=== PATIENT | male | born 1970 | race Caucasian/White ===

== ENCOUNTER → 2016-07-19 | Outpatient (CLI) | payer OTHER ==
[2016-07-19 17:33] LABS: Bilirubin, Delta 0.3 mg/dL (0.0-0.2); Total Bilirubin 0.5 mg/dL (0.2-1.3); Total Protein 7.1 g/dL (6.3-8.2)
== END ==
LOC: LABWHC1 16:32
DX: R74.8 Abnormal levels of other serum enzymes (principal)
CPT/HCPCS: 36415; 80076

== ENCOUNTER → 2016-07-31 | Outpatient (CLI) | payer OTHER ==
--- NOTE | 2016-08-01 07:55 | P.CONS ---
History of Present Illness - Reason for Consult Consult date: 07/31/16 - History of Present Illness This is from a history for this 46 years old male with a chronic history of severe low back pain, and a 22 lumbar degenerative disc disease and lumbar spondylosis with lumbar facet arthropathy, done diagnostic medial branch block and later on was followed with radiofrequency ablation of the medial branch lumbar area, she'll continue to have severe low back pain, and pain is constant and increases with any activity, the patient was referred to have a consultation with the Dr. Shayy levi spine surgeon, and he recommended lumbar spinal fusion, patient reported that he doesn't want to have surgery at this point, he is trying to delay any surgical interventions and he prefers medication management, he denies any fever or night sweats he denies any change in the bowel movements or urination Past Medical History Past Medical History: Musculoskeletal Disorder, Rheumatoid Arthritis (RA) Additional Past Medical History / Comment(s): DDD in lumbar area. History of Any Multi-Drug Resistant Organisms: None Reported Past Surgical History: No Surgical Hx Reported Additional Past Surgical History / Comment(s): Had all his teeth pulled recently ,pain clinic injections Past Anesthesia/Blood Transfusion Reactions: No Reported Reaction Additional Past Anesthesia/Blood Transfusion Reaction / Comm: Only Novacain for teeth Past Psychological History: No Psychological Hx Reported Smoking Status: Current every day smoker Past Alcohol Use History: Rare Additional Past Alcohol Use History / Comment(s): Smokes 1 PPD x 30 yrs. Past Drug Use History: None Reported - Past Family History Mother Family Medical History: No Reported History Father Family Medical History: Pulmonary Embolus Additional Family Medical History / Comment(s): ? Medications and Allergies Home Medications Medication Instructions Recorded Confirmed Type Cholecalciferol (Vitamin D3) 50,000 units PO DAILY 03/07/16 07/31/16 History [Vitamin D3] Allergies Allergy/AdvReac Type Severity Reaction Status Date / Time No Known Allergies Allergy Verified 07/31/16 16:00 Physical Exam Vitals: Intake and Output 07/31/16 08/01/16 08/01/16 22:59 06:59 14:59 Other: Weight 107.048 kg Physical Examinations : 1-Constitutiona : Cooperative , not in acute distress . 2-HEENT : nech ; supple , no Lymphadenopathy , no Thyromegaly , normal thyroid size . eyes : no ptosis , no icterus, no photophobia . ENT : normal of hearing , normal oropharynx , no Thrush . 3- Respiratory : Chest clear to auscultations Bilaterally , no wheezing , no Rhonchi . 4- Cardiovascular : regular rate and rhythem , S1 , S2 , no S3 , no S4. 5- Gastrointestinal : abdomen soft no tenderness , bowel sounds positive all four quadrents , no organomegally . 6- Genitourinary : Defferred . 7- neurologic : Cranial nerve II to XII intact , no focal neurological deffecit . 8-psychatric : alert , oriented X 3 , appropriate affect , intact judgment and insight . 9-Lymphatic : no Lymphadenopathy . 10- musculoskeltal : positive cervical facet loading test . exams of the Lumber spine = normal moter stegnth lower extremities ,thigh and legs .5/5 deep tendon reflexes : normal Knee Jerk , normal ankle Jerk . positive lumber facet Loading Test strait leg raising test positive at 30 degree , RT ,LT , Fabere test positive RT and positive LT . Assessment and Plan Plan: Assessment and plan = - Chronic low back pain secondary to lumbar degenerative disc disease , lumbar spondylosis with facet arthropathy without myelopathy , Patient hasn't the diagnostic medial branch block which was followed with radiofrequency ablation of the medial branch lumbar area, he continued to have severe low back pain, he was evaluated by spine surgeon Dr. Lucas on a recommended lumbar fusion patient doesn't want surgery, patient will be given prescription refill for naproxen 500 mg twice a day when necessary for pain, and I will increase the Neurontin to 400 mg 3 times a day, patient could benefit from ultrasound 50 mg every 8 hours when necessary for pain, patient signed the agreement, and next visit we'll do urine drug screen and follow up with the pain clinic in 2 months Time with Patient: Less than 30
== END | disposition home or self-care (01) ==
LOC: PNWHC3 15:59
PROVIDERS: ATTEND Specialist
DX: M51.36 Other intervertebral disc degeneration, lumbar region (principal); M47.816 Spondylosis without myelopathy or radiculopathy, lumbar region; M46.86 Other specified inflammatory spondylopathies, lumbar region; F17.200 Nicotine dependence, unspecified, uncomplicated
CPT/HCPCS: 99211

== ENCOUNTER → 2016-09-26 | Outpatient (CLI) | payer OTHER ==
[2016-09-26 12:19] VITALS: BP 145/94; PULSE 96; RESP 16; TEMP 98.5
--- NOTE | 2016-09-26 13:31 | P.PN ---
Subjective This is follow-up visit for this patient with a history of severe and chronic low back pain secondary to lumbar degenerative disc disease, lumbar facet arthropathy, we did interventional pain management injection,, radiofrequency ablation medial branch lumbar area he get good pain relief, and he saw Dr. Lucas orthopedic spine surgeon who recommended lumbar fusion surgery, patient doesn't want to have any surgery, he preferred to continue medication management and interventional pain management, she is having some mid back pain patient currently on 1- Ultram 50 MG EVERY 8 HOURS 2-naproxen 500 twice a day 3-Neurontin 400 every 8 hours Patient denies any side effects of the medication, denies excessive drowsiness or sleepiness, denies suicidal ideation, and reports that the current pain medication is helping To control the pain and improve activity of daily living . Patient denies any motor or sensory deficit, denies change in bowel movement or urination, patient denies any fever or night sweats and patient here for follow-up visit and medication refill Objective - Vital Signs Vital signs: Vital Signs Temp 98.5 F 09/26/16 12:14 Pulse 96 09/26/16 12:14 Resp 16 09/26/16 12:14 BP 145/94 09/26/16 12:14 Pulse Ox 93 L 09/26/16 12:14 Intake & Output 09/25/16 09/26/16 09/26/16 18:59 06:59 18:59 Weight 104.326 kg - Exam Physical Examinations : 1-Constitutiona : Cooperative , not in acute distress . 2-HEENT : nech ; supple , no Lymphadenopathy , normal thyroid size . eyes : no ptosis , no icterus, no photophobia . ENT : normal of hearing , normal oropharynx , no Thrush . 3- Respiratory : Chest clear to auscultations Bilaterally , no wheezing , no Rhonchi . 4- Cardiovascular : regular rate and rhythem , S1 , S2 , no S3 , no S4. 5- Gastrointestinal : abdomen soft no tenderness , bowel sounds positive all four quadrents , no organomegally . 6- Genitourinary : Defferred . 7- neurologic : Cranial nerve II to XII intact , no focal neurological deffecit . 8-psychatric : alert , oriented X 3 , appropriate affect , intact judgment and insight . 9-Lymphatic : no Lymphadenopathy . 10- musculoskeltal : , Lumber spine = normal moter stegnth lower extremities ,thigh and legs .5/5 deep tendon reflexes : normal Knee Jerk , normal ankle Jerk . positive lumber facet Loading Test strait leg raising test positive at 30 degree , RT ,LT , Fabere test positive RT and positive LT . tenderness over the Sacroiliac joint on the Right , and Left side Thoracic spine= multiple trigger point identified in the mid thoracic area, positive facet loading to thoracic area from T7 to T10 Assessment and Plan Plan: Assessment and plan = - Chronic low back pain secondary to lumbar degenerative disc disease , lumbar spondylosis with facet arthropathy without myelopathy , -The myofascial pain versus thoracic facet -Patient denies any side effect of the medication, and the current medication helped the patient to control the pain and improve activity of daily living The patient was counseled about risk of opioid use, psychological risk associated with opioids discussed with the patient, body mass index and exercise. Patient signed the narcotic agreement , and was orally counseled not to overuse , abuse , divert, or sell medications ,and take them as prescribed only , and the patient was counseled against driving and while you are using the narcotic medication also not to use alcohol or any illicit drugs and the patient verbalized understanding that lack of compliance and could result in failure to renew narcotics prescriptions and possible discharge from the clinic - diagnoses, prognosis, and treatment options including but not limited to physical therapy, surgical interventions, interventional therapies and medication management including narcotics and adjuvant medication were discussed with the patient and all questions answered to the patient's satisfaction. -medication refile =1-Ultram 50 mg every 8 hours dispense 90 with 2 refills 2-naproxen 500 mg twice a day dispense 60 with 1 refill 3- Neurontin 400 mg 3 times a day , dispense 90 with 2 refills follow up in 3 months -procedure= consider repeat radiofrequency ablation medial branch lumbar area next visit , urine drug screen ordered today Time with Patient: Less than 30
== END ==
LOC: PNWHC3 11:46
PROVIDERS: ATTEND Specialist
DX: M51.36 Other intervertebral disc degeneration, lumbar region (principal); M47.816 Spondylosis without myelopathy or radiculopathy, lumbar region; M46.86 Other specified inflammatory spondylopathies, lumbar region; G89.29 Other chronic pain; Z79.891 Long term (current) use of opiate analgesic
CPT/HCPCS: 80307; G0480 ×2; G0463; 80356; 80373; 99211

== ENCOUNTER 2016-10-18 20:46 | Emergency (ER) | payer OTHER ==
--- NOTE | 2016-10-18 22:41 | ED ---
Upper Extremity HPI - General Chief Complaint: Extremity Injury, Upper Stated Complaint: L Arm Pain/Injury Time Seen by Provider: 10/18/16 21:54 Source: patient Mode of arrival: ambulatory Limitations: no limitations - History of Present Illness Initial Comments: Patient is a right-handed 46-year-old male medical history significant for rheumatoid arthritis and chronic low back pain presenting to the emergency department with complaints of left upper extremity pain. Patient states he was walking in his sandals yesterday and missed a curve and fell with his left hand outstretched. Patient currently complains of left upper extremity pain mostly on the ventral aspect of his left elbow and upper arm. Patient rates pain 9 out of 10, described as sharp, exacerbated with movement, relieved with rest. Patient states he took prescribed narcotics prior to arrival and applied ice to his left upper extremity. MD Complaint: Injury to:: left, arm, elbow Onset/Timin -: days(s) Other Injuries: none Handedness: right Place: outdoors Severity scale (1-10): 9 Improves With: immobilization Worsens With: movement of extremity Context: fall Associated Symptoms: heard/felt popping sensat Treatments Prior to Arrival: cold therapy - Related Data Home Medications Medication Instructions Recorded Confirmed Cholecalciferol (Vitamin D3) 50,000 units PO DAILY 03/07/16 09/26/16 [Vitamin D3] Previous Rx's Medication Instructions Recorded Naproxen 500 mg PO BID #60 tablet 07/31/16 Gabapentin [Neurontin] 400 mg PO TID #90 cap 09/26/16 Naproxen [EC-Naprosyn] 500 mg PO Q12HR PRN #60 tablet. 09/26/16 traMADol HCL [Ultram] 50 mg PO Q6HR PRN #90 tab 09/26/16 Allergies Allergy/AdvReac Type Severity Reaction Status Date / Time No Known Allergies Allergy Verified 10/18/16 20:50 Review of Systems ROS Statement: Those systems with pertinent positive or pertinent negative responses have been documented in the HPI. ROS Other: All systems not noted in ROS Statement are negative. Past Medical History Past Medical History: Musculoskeletal Disorder, Rheumatoid Arthritis (RA) Additional Past Medical History / Comment(s): DDD in lumbar area. History of Any Multi-Drug Resistant Organisms: None Reported Past Surgical History: No Surgical Hx Reported Additional Past Surgical History / Comment(s): Had all his teeth pulled recently ,pain clinic injections Past Anesthesia/Blood Transfusion Reactions: No Reported Reaction Additional Past Anesthesia/Blood Transfusion Reaction / Comment(s): Only Novacain for teeth Past Psychological History: No Psychological Hx Reported Smoking Status: Current every day smoker - Past Family History Mother Family Medical History: No Reported History Father Family Medical History: Pulmonary Embolus Additional Family Medical History / Comment(s): ? General Exam Limitations: no limitations General appearance: alert, in no apparent distress Head exam: Present: atraumatic, normocephalic, normal inspection Eye exam: Present: normal appearance ENT exam: Present: normal exam, mucous membranes moist, normal external ear exam Neck exam: Present: normal inspection, full ROM. Absent: tenderness Respiratory exam: Present: normal lung sounds bilaterally. Absent: respiratory distress, wheezes, rales, rhonchi, stridor Cardiovascular Exam: Present: regular rate, normal rhythm, tachycardia, normal heart sounds. Absent: systolic murmur GI/Abdominal exam: Present: soft, normal bowel sounds. Absent: tenderness Left Shoulder Exam: Present: normal inspection, full ROM. Absent: tenderness, swelling Upper Arm exam: Present: tenderness, swelling, ecchymosis, deformity Elbow exam: Present: full ROM, tenderness, swelling, ecchymosis Forearm Wrist exam: Present: full ROM Hand Wrist exam: Present: normal inspection, full ROM. Absent: tenderness, swelling Neuro motor exam: Present: wrist extension intact, thumb opposition intact, thumb IP flexion intact, thumb adduction intact, fingers 2-5 abduction intact Neurosensory exam: Present: radial nerve intact, ulnar nerve intact, median nerve intact Vascular: Present: normal capillary refill, radial pulse, brachial pulse, ulnar pulse. Absent: vascular compromise Neurological exam: Present: alert, oriented X3, normal gait, other (No focal deficits noted) Psychiatric exam: Present: normal affect, normal mood Skin exam: Present: warm, dry, intact Course Vital Signs 10/18/16 10/18/16 20:47 23:30 Temperature 98.4 F 97.2 F L Pulse Rate 102 H 88 Respiratory 20 16 Rate Blood Pressure 132/81 129/84 O2 Sat by Pulse 95 95 Oximetry Medical Decision Making - Medical Decision Making Sprain to left elbow. Patient instructed to continue ice, Motrin, and elevation. Patient instructed to follow-up with orthopedic service with persistent pain. Patient agrees with treatment plan. Discharge instructions and return parameters reviewed. - Radiology Data Radiology results: report reviewed X-ray left humerus: No acute fracture. No dislocation. Soft tissue swelling distal anterior upper arm. X-ray left forearm: Soft tissue swelling medial to left elbow. No acute shift abnormality. X-ray left elbow. Soft tissue swelling medial to the left elbow. No acute osseous abnormality. Disposition Clinical Impression: Sprain of left elbow Disposition: HOME SELF-CARE Condition: Good Instructions: Elbow Sprain (ED) Additional Instructions: Avoid activity that causes pain Ice 20 minutes 4 times a day usually for 2-3 days Keep elevated as much as possible 24-48 hours. Continue Motrin for pain. Return to the emergency department with symptoms of increased swelling, pain, numbness, tingling, or hand feeling cold to touch. Follow-up with primary service and orthopedic service as directed. Referrals: Shila Kessler MD [Primary Care Provider] - 1-2 days Latonya Lucas DO [Doctor of Osteopathic Medicine] - 1-2 days Time of Disposition: 23:35
--- NOTE | 2016-10-18 23:21 | XR ---
EXAM: XR Left Forearm, 2 Views CLINICAL HISTORY: Reason: Pain TECHNIQUE: Frontal and lateral views of the left forearm. COMPARISON: No relevant prior studies available. FINDINGS: Bones/joints: Unremarkable. No acute fracture. No dislocation. Soft tissues: Soft tissue swelling medial to the left elbow. IMPRESSION: Soft tissue swelling medial to the left elbow. No acute osseous abnormality.
--- NOTE | 2016-10-18 23:21 | XR ---
EXAM: XR Left Humerus, 2 or More Views CLINICAL HISTORY: Reason: Pain TECHNIQUE: Frontal and lateral views of the left humerus. COMPARISON: No relevant prior studies available. FINDINGS: Bones/joints: No acute fracture. No dislocation. Soft tissues: Soft tissue swelling distal anterior upper arm. IMPRESSION: Soft tissue swelling of the distal anterior upper arm. No acute fracture.
--- NOTE | 2016-10-18 23:22 | XR ---
EXAM: XR Left Elbow Complete, 3 or More Views CLINICAL HISTORY: Reason: Pain TECHNIQUE: Frontal, lateral and oblique views of the left elbow. COMPARISON: No relevant prior studies available. FINDINGS: Bones/joints: No acute fracture. No dislocation. No joint effusion. Soft tissues: Soft tissue swelling medial to the left elbow. IMPRESSION: Soft tissue swelling medial to the left elbow. No acute osseous abnormality.
[2016-10-18 23:32] VITALS: BP 129/84; PULSE 88; RESP 16; TEMP 97.2
== END 2016-10-18 23:40 | disposition home or self-care (01) ==
LOC: EC 20:46
DX: S53.402A Unspecified sprain of left elbow, initial encounter (principal); F17.200 Nicotine dependence, unspecified, uncomplicated; Z79.899 Other long term (current) drug therapy; W10.1XXA Fall (on)(from) sidewalk curb, initial encounter; Y93.01 Activity, walking, marching and hiking
CPT/HCPCS: 99283

== ENCOUNTER → 2016-12-19 | Outpatient (CLI) | payer OTHER ==
[2016-12-19 12:07] VITALS: BP 121/80; PULSE 91; RESP 16; TEMP 97.8
--- NOTE | 2016-12-19 12:29 | P.PN ---
Progress Note - Text This is a 46-year-old male with axial lower back pain due to degenerative disc disease and pars defect bilaterally. He shouldn't hand lumbar medial branch RFA about 8 months ago which gave him 1-2 months of pain relief only however he got significant pain relief for the first 1 or 2 months after that. Patient works as a cook takes tramadol and the Neurontin for his pain his primary care physician asked him to stop using naproxen avoid any stomach complications. At this time I will schedule the patient to have lumbar medial branch RFA on the right side to start with, and then we'll continue prescribing tramadol and Neurontin for him.
== END | disposition home or self-care (01) ==
LOC: PNWHC3 11:50
PROVIDERS: ATTEND Anesthesiology
DX: M51.16 Intervertebral disc disorders with radiculopathy, lumbar region (principal); Z79.899 Other long term (current) drug therapy
CPT/HCPCS: 99211

== ENCOUNTER 2017-01-10 06:23 | Day surgery (SDC) | payer OTHER ==
[2017-01-08 11:48] VITALS: BMI 32.3
[~2017-01-10 06:23] MED LIST: LACTATED RINGERS 1,000 ML IV SCH
[2017-01-10 06:55] VITALS: TEMP 98.1
[2017-01-10] MEDS ORDERED: LIDOCAINE 1% 20 ML VIAL (10MG/ML) FOR IV START INTRADERMA ONE (06:55)
[2017-01-10] MEDS ORDERED: IV FLUID CONTINUATION 1,000 ML IV ONE (08:12)
--- NOTE | 2017-01-10 08:14 | P.PCN ---
Date of Procedure: 01/10/17 Preoperative Diagnosis: Lumbar spondylosis without myelopathy Postoperative Diagnosis: Same as above Procedure(s) Performed: Right lumbar medial branch radiofrequency ablation under fluoroscopic guidance for the medial branches number L2, L3, L4, and L5 which corresponds to the facet joints of L3-4, L4-L5, and L5-S1 Anesthesia: MAC (Moderate IV conscious sedation with fentanyl percent) Surgeon: Luis M De La Vega Pathology: none sent Condition: stable Disposition: PACU Description of Procedure: The patient was seen in the preop holding area consent was obtained then he was brought into the procedure room and placed in prone position. Skin was prepped with ChloraPrep and draped in a sterile manner. Lidocaine 1% was used to numb the skin up at the target points that were chosen as follows: For the L2-L3 and L4 medial branches the target points were the connection between the transverse process and the superior to go process of L3, L4, and L5 vertebra respectively on the right oblique view of fluoroscopy, and for the L5 dorsal ramus the target point was at the superior medial aspect of the sacral ala on the right side of the spine on the AP view of fluoroscopy. Used 18-gauge and 100 mm in length with 10 mm curved active tip radio frequency ablation needles for this procedure. I placed the active tips as parallel as possible to the medial branches tracks by going in a superior medial direction. AP, oblique, and lateral views of fluoroscopy were obtained to verify needle tip position. Then motor stimulation was done which showed only local twitches of these needles with no radiation of twitching to the right lower extremity. Then I prepared a solution of 3 MLS Marcaine 0.5% +40 mg of Kenalog and 1 mL of the solution was given in each needle before starting radio frequency ablation for 2 sessions each lasted for 90 seconds at 80C. Patient tolerated procedure well.
[2017-01-10 08:32] VITALS: BP 136/83; PULSE 74; RESP 16
--- NOTE | 2017-01-10 10:30 | FL ---
EXAMINATION TYPE: FL guided pain mgmt statistic DATE OF EXAM: 01/10/2017 COMPARISON: NONE HISTORY: Back pain TECHNIQUE: Fluoroscopy. FINDINGS/IMPRESSION: Fluoroscopic guidance was provided during procedure performed by Dr. De La Vega. A total of 16 seconds of fluoroscopic time was utilized during the procedure and 3 spot images was ac quired.
== END 2017-01-10 08:44 | disposition home or self-care (01) ==
LOC: ORPAIN 06:23
PROVIDERS: ATTEND Anesthesiology
DX: M47.816 Spondylosis without myelopathy or radiculopathy, lumbar region (principal)
CPT/HCPCS: 64635; 64636 ×2; 99152; 99153; J2250; J3301; J3010

== ENCOUNTER 2017-02-06 09:18 | Day surgery (SDC) | payer OTHER ==
[2017-01-31 12:15] VITALS: BMI 32.3
[2017-02-06 10:12] VITALS: RESP 16; TEMP 98
[2017-02-06] MEDS ORDERED: LIDOCAINE 1% 20 ML VIAL (10MG/ML) FOR IV START INTRADERMA ONE (10:17)
--- NOTE | 2017-02-06 11:34 | P.PCN ---
Date of Procedure: 02/06/17 Procedure(s) Performed: PREOPERATIVE DIAGNOSIS: 1-Lumbar Spondylosis with Facet Arthropathy without myelopathy. 2- Lumber degenerative disc disease POSTOPERATIVE DIAGNOSIS: 1- Lumbar Spondylosis with Facet Arthropathy without myelopathy. 2- Lumber degenerative disc disease. PROCEDURES : Left Radiofrequency thermocoagulation, L3-L4, L4-L5, and L5-S1 medial branch, with fluoroscopic guidance ANESTHESIA: IV sedation with versed 2 mg and fentaneyl 150 mcg and local infiltration with lidocaine 1% 6 ml EBL: Minimal PROCEDURE INDICATION: The patient with low back pain secondary to lumbar facet arthropathy who had more than 50% relief of her pain with previous diagnostic lumbar medial branch block with bupivacaine. PROCEDURE DESCRIPTION / TECHNIQUE: The patient was seen and identified in the preoperative area. Risks, benefits, complications, including but not limited to risk of infection ,bleeding , allergic reactions to the medications and no complete pain releife , and alternatives were discussed with the patient, the patient agreed to proceed with the procedure and signed the consent. IV was started. Vital signs remained stable throughout the procedure. Patient was taken to the OR and time out was completed. The patient was placed in the prone position on the procedure table. The lumber area was prepped and draped in the usual sterile fashion. . Vital signs were closely monitored during the procedure .IV sedation was used during the procedure to decrease patients anxiety. Using AP and then oblique fluoroscopy, the ``eye of the Kevin dog corresponding to the connection between the superior and transverse articular processes of Left L3, L4, and L5 were identified, marked, and localized with 1 % lidocaine. Subsequently, a 18 -xz radiofrequency cannula with a 10- mm active tip was advanced guided by fluoroscopy to each of the ``eyes of the Kevin dog at Left L3, L4, and L5. Each site then underwent sensory testing at 50 Hz and 0 to 1 volt and motor testing at 2.5 Hz and 0 to 3 volt with local stimulation, but no radicular symptoms down the legs. Thereafter the Left L3-4, L4-5, and L5-S1 sites underwent radiofrequency thermocoagulation at 80 degrees celsius for 90 seconds after injecting 0.5 ml of PF lidocaine 1%. then After the thermocoagulation done , 1 ml of the block solution containing Kenalog 40 mg and 3 ml of marain 0.5% was injected at the Left L3-4 , L4-5 , and L5-S1, levels after negative aspiration of CSF and blood and with no paresthesias. Cannulas were retracted while injecting lidocaine 1% until the needle is out. At the end of the procedure, the skin was cleansed and bandages were applied. COMPLICATIONS: No acute complications. DISPOSITION / PLANS: The patient was placed in a supine position and transferred to the recovery area in a stable condition for observation and was discharged from the recovery room after meeting discharge criteria. Home discharge instructions given to the patient by the staff. The patient was reexamined prior to discharge. The patient will schedule a follow up in the clinic in few weeks. Today I gave the patient prescription refill for ultrasound 50 mg every 8 hours dispense 90 with 1 refill and Neurontin 400 mg every 8 hours dispense 90 with 1 refill
[2017-02-06] MEDS ORDERED: IV FLUID CONTINUATION 1,000 ML IV ONE (11:45)
[2017-02-06 12:02] VITALS: BP 128/90; PULSE 76
--- NOTE | 2017-02-06 16:11 | FL ---
EXAMINATION TYPE: FL guided pain mgmt statistic DATE OF EXAM: 02/06/2017 COMPARISON: NONE HISTORY: Back pain TECHNIQUE: Fluoroscopy. FINDINGS/IMPRESSION: Fluoroscopic guidance was provided during procedure performed by Dr. Brewer. A total of 12 seconds of fluoroscopic time was utilized during the procedure and received spot images was acquired.
== END 2017-02-06 12:21 | disposition home or self-care (01) ==
LOC: ORPAIN 09:18
PROVIDERS: ATTEND Specialist
DX: M47.816 Spondylosis without myelopathy or radiculopathy, lumbar region (principal); M46.96 Unspecified inflammatory spondylopathy, lumbar region; M51.36 Other intervertebral disc degeneration, lumbar region
CPT/HCPCS: 64635; 64636; 99152; J2250; J3301; J3010; 99153

== ENCOUNTER → 2017-04-29 | Outpatient (CLI) | payer BC ==
[2017-04-29 14:59] VITALS: BP 156/94; PULSE 109; RESP 16; TEMP 98.2
--- NOTE | 2017-04-29 15:14 | P.PN ---
Progress Note - Text Progress Note Date: 04/29/17 Patient returns for followup for chronic back pain without significant radiation. Patient recently underwent bilateral RFA, which provided very little relief since procedure. Patient continues on Neurontin and tramadol medications for pain with some relief. Patient denies adverse drug effects from medications. Today, pt denies new-onset weakness, bowel/bladder incontinence, or any other signs or symptoms of cauda equina syndrome. There are no signs of acute intoxication, and no indications of medication diversion or overuse. In addition to above, 13-point review of systems is also negative for chest pain , shortness of breath, changes in vision, changes in hearing, new onset weakness , abdominal pain, diarrhea, extreme fatigue, malaise, fever, skin changes, homicidal or suicidal ideation, or bowel or bladder incontinence. Vital Signs: Reviewed in EMR Gen: WDWN, AAOx3, NAD HEENT: NCAT, EOMI, hearing grossly normal Pulm: resp unlabored Abd: soft, NT, ND Neck: supple, trachea midline ROM in flexion lumbar spine: reduced ROM in extension lumbar spine: reduced Lumbar paravertebral tenderness: + Facet loading: ++ bilateral SI joint tenderness: neg bilateral Santiago's test: + R side Straight leg raise: neg bilateral Neuro: CN II-XII grossly intact, muscle strength lower extremities PRESERVED Imaging: Reviewed in EMR Assessment: 1. lumbar spondylosis without myelopathy 2. SI joint dysfunction Plan: 1. Explanation: Opioid and psychological risk scores were reviewed. Diagnoses , prognoses, and multiple treatment options including but not limited to physical therapy, interventional therapies, adjuvant medical therapies, narcotic medication therapies, and surgery were discussed with the patient and all questions were answered to the patient's satisfaction. 2. Opioid agreement: none prescribed 3. Counseling: The patient was counseled extensively on SMOKING CESSATION, BODY MASS INDEX, EXERCISE. Specifically, the patient was instructed regarding the importance of smoking cessation, obesity, and exercise in the context of both chronic pain and overall health. 4. Procedures: none for now 5. Consultations: Dr. Lucas for possible surgical intervention 6. Investigations: None 7. Medications: Neurontin 300 mg #90 and tramadol 50 mg #90 with two refills 8. Disposition: f/u for re-eval 12 weeks PQRS measures: 1-Patient's medications are documented in the chart. 2-Tobacco use is positive 3-Patient has not had a pneumococcal vaccine. 4-Advanced care planning discussed, patient unable to give. 5-Opioid contract signed with the patient. 6-Pain positive, follow-up visit or procedure scheduled 7-Patient's blood pressure measured and documented, and patient will follow up with the primary care due to hypertension. 8-Patient's weight was measured, and body mass index ABOVE the normal limits, and counseling was done. Patient instructed to follow up with PCP. 9-Patient WAS NOT identified as an unhealthy alcohol user.
== END | disposition home or self-care (01) ==
LOC: PNWHC3 14:18
PROVIDERS: ATTEND Anesthesiology
DX: M47.816 Spondylosis without myelopathy or radiculopathy, lumbar region (principal); M53.3 Sacrococcygeal disorders, not elsewhere classified; Z79.899 Other long term (current) drug therapy
CPT/HCPCS: 99211

== ENCOUNTER → 2017-07-22 | Outpatient (CLI) | payer BC ==
[2017-07-22 12:45] VITALS: BP 136/91; PULSE 98; RESP 16
--- NOTE | 2017-07-22 13:21 | P.PN ---
Subjective Progress Note Date: 07/22/17 This is follow-up visit for this patient with a history of severe and chronic low back pain secondary to lumbar degenerative disc disease, lumbar facet arthropathy, we have done The frequency ablation of the medial branch lumbar area , and he continues to have severe low back pain patient currently on Ultram 50 mg 3 times a day , Neurontin 400 mg 3 times a day Patient denies any side effects of the medication, denies excessive drowsiness or sleepiness, denies suicidal ideation, and reports that the current pain medication is helping To control the pain and improve activity of daily living . Patient denies any motor or sensory deficit, denies change in bowel movement or urination, patient denies any fever or night sweats and patient here for follow-up visit and medication refill Objective - Vital Signs Vital signs: Vital Signs Temp Pulse 98 07/22/17 12:41 Resp 16 07/22/17 12:41 BP 136/91 07/22/17 12:41 Pulse Ox 95 07/22/17 12:41 Intake & Output 07/21/17 07/22/17 07/22/17 18:59 06:59 18:59 Weight 105.233 kg - Exam Physical Examinations : 1-Constitutiona : Cooperative , not in acute distress . 2-HEENT : nech ; supple , no Lymphadenopathy , normal thyroid size . eyes : no ptosis , no icterus, no photophobia . ENT : normal of hearing , normal oropharynx , no Thrush . 3- Respiratory : Chest clear to auscultations Bilaterally , no wheezing , no Rhonchi . 4- Cardiovascular : regular rate and rhythem , S1 , S2 , no S3 , no S4. 5- Gastrointestinal : abdomen soft no tenderness , bowel sounds positive all four quadrents , no organomegally . 6- Genitourinary : Defferred . 7- neurologic : Cranial nerve II to XII intact , no focal neurological deffecit . 8-psychatric : alert , oriented X 3 , appropriate affect , intact judgment and insight . 9-Lymphatic : no Lymphadenopathy . 10- musculoskeltal : , Lumber spine = normal moter stegnth lower extremities ,thigh and legs .5/5 deep tendon reflexes : normal Knee Jerk , normal ankle Jerk . lumber facet Loading Test positive strait leg raising test positive at 30 degree Right , positve at 30 degree Left Fabere test positive Right and positive Left Assessment and Plan Plan: Assessment and plan= chronic low back pain secondary to lumbar degenerative disc disease , lumbar spondylosis with lumbar facet arthropathy chronic and current use of high-risk medication (opioids) Patient denies any side effects of the current pain medication and the current treatment/medication ML and the patient to do activity of daily living , Diagnoses, prognosis, treatment options, including but not limited to physical therapy, medication management, interventional therapies, and surgery, were discussed with the patient All the questions answered Patient signed the narcotic agreement, and he was orally counseled, not to overuse, not to abuse, not to Divert , not tp sell pain medication, and to take it as prescribed only, Patient was counseled not to drive or operate heavy equipment while using narcotic medication, and advised not to use alcohol or any Illicit drugs while using the narcotis, the patient's verbalized understanding that lack of compliance with any of the above instructions and will likely to cause discharge from the pain service, not to renew his narcotic prescriptions Medication managements= patient will be given prescription refills for Ultram 50 mg 3 times a day dispense 90 with 2 refills, Neurontin 400 mg 3 times a day dispense 90 with 2 refills Next visit we'll do urine drug screen , Time with Patient: Less than 30
== END | disposition home or self-care (01) ==
LOC: PNWHC3 12:04
PROVIDERS: ATTEND Specialist
DX: G89.29 Other chronic pain (principal); M51.36 Other intervertebral disc degeneration, lumbar region; M47.816 Spondylosis without myelopathy or radiculopathy, lumbar region; M46.96 Unspecified inflammatory spondylopathy, lumbar region; Z79.899 Other long term (current) drug therapy; Z79.891 Long term (current) use of opiate analgesic
CPT/HCPCS: 99211

== ENCOUNTER 2017-11-11 22:46 | Emergency (ER) | payer BC ==
[2017-11-11 22:50] VITALS: BP 135/88; PULSE 108; RESP 18; TEMP 98.1
[2017-11-11] MEDS ORDERED: predniSONE 20 MG TAB PO STA (23:18)
--- NOTE | 2017-11-11 23:29 | ED ---
General Adult HPI - General Chief complaint: Skin/Abscess/Foreign Body Stated complaint: rash Time Seen by Provider: 11/11/17 22:56 Source: patient Mode of arrival: ambulatory Limitations: no limitations - History of Present Illness Initial comments: This is a 47 yo male with no PMH who presents today for CC of "I have poison yesenia ", pt states that about a week ago he was removing brush alongside his home. 3 days later a rash errupted on his arms b/l and lower legs in areas not covered by t-shirt and shorts.The rash is very itching and in some areas vesicular, he states this is identical when he has had poison yesenia in the past. Pt tried drying up the resin with pam dish soap, and has been changing the sheets/ washing clothing daily. He has been avoiding itching however he states he cant take the itching anymore. Pt denies surrounding erythema from lesions, fever or chills, new medications, difficulty breathing or any other symptoms. Patient denies any recent shortness of breath, chest pain, back pain, abdominal pain, nausea or vomiting, numbness or tingling, dysuria or hematuria, constipation or diarrhea, headaches or visual changes, or any other complaints. - Related Data Previous Rx's Medication Instructions Recorded Gabapentin [Neurontin] 400 mg PO TID #90 cap 07/22/17 traMADol HCL [Ultram] 50 mg PO Q6HR PRN #90 tab 07/22/17 Calamine/Zinc Oxide Lotion 1 applic TOPICAL BID PRN 14 Days 11/11/17 [Calamine Lotion] #1 bottle predniSONE 10 mg PO DIRECTED 14 Days #28 11/11/17 tab Allergies Allergy/AdvReac Type Severity Reaction Status Date / Time No Known Allergies Allergy Verified 11/11/17 22:50 Review of Systems ROS Statement: Those systems with pertinent positive or pertinent negative responses have been documented in the HPI. ROS Other: All systems not noted in ROS Statement are negative. Constitutional: Denies: fever, chills Eyes: Denies: vision change ENT: Denies: ear pain Respiratory: Denies: cough, dyspnea Cardiovascular: Denies: chest pain, palpitations Endocrine: Denies: as per HPI Gastrointestinal: Denies: abdominal pain, nausea, vomiting, diarrhea Genitourinary: Denies: urgency, dysuria Musculoskeletal: Denies: back pain Skin: Reports: as per HPI, rash, lesions Neurological: Denies: headache, weakness, numbness, paresthesias, confusion Past Medical History Past Medical History: Musculoskeletal Disorder, Rheumatoid Arthritis (RA) Additional Past Medical History / Comment(s): DDD in lumbar area., History of Any Multi-Drug Resistant Organisms: None Reported Past Surgical History: No Surgical Hx Reported Additional Past Surgical History / Comment(s): ,pain clinic injections. MUSCLE BX-02/2016, Past Anesthesia/Blood Transfusion Reactions: No Reported Reaction Additional Past Anesthesia/Blood Transfusion Reaction / Comment(s): Only Novacain for teeth Past Psychological History: No Psychological Hx Reported Smoking Status: Current every day smoker Past Alcohol Use History: Occasional Past Drug Use History: None Reported - Past Family History Mother Family Medical History: No Reported History Father Family Medical History: Pulmonary Embolus Additional Family Medical History / Comment(s): ? General Exam - General Exam Comments Initial Comments: General: The patient is awake and alert, in no distress, and does not appear acutely ill. Eye: Pupils are equal, round and reactive to light, extra-ocular movements are intact. No nystagmus. There is normal conjunctiva bilaterally. No signs of icterus. Ears, nose, mouth and throat: There are moist mucous membranes and no oral lesions. Neck: The neck is supple, there is no tenderness or JVD. Cardiovascular: There is a regular rate and rhythm. No murmur, rub or gallop is appreciated. Respiratory: Lungs are clear to auscultation, respirations are non-labored, breath sounds are equal. No wheezes, stridor, rales, or rhonchi. Gastrointestinal: [Soft, non-distended, non-tender abdomen without masses or organomegaly noted. There is no rebound or guarding present. No CVA tenderness. Bowel sounds are unremarkable.] Musculoskeletal: Normal ROM, no tenderness. Strength 5/5. Sensation intact. Pulses equal bilaterally 2+. Neurological: A&O x 3. CN II-XII intact, There are no obvious motor or sensory deficits. Coordination appears grossly intact. Speech is normal. Skin: Skin is warm and dry. There are small erytheamous lesions distributed in contact pattern to the UE up to 5 inches below shoulder and lower extremities from ankle to right below knees b/l. Some lesions are scabbed over and others are vesicular. No surrounding erythema, warmth or tenderness to palpation. No purulent d/c. Psychiatric: Cooperative, appropriate mood & affect, normal judgment. Limitations: no limitations Course Vital Signs 11/11/17 22:48 Temperature 98.1 F Pulse Rate 108 H Respiratory 18 Rate Blood Pressure 135/88 O2 Sat by Pulse 97 Oximetry Medical Decision Making - Medical Decision Making Case was discussed with Dr. Duke in detail at this time we feel the lesions are consistent with resin exposure. Given that the area of the body affected is extensive we feel pt would benefit from systemic steroids. Pt was prescribed a 14 day steroid taper and camamile lotion. pt was given one dose of prednisone prior to d/c due to no open pharmacies. Pt was educated on signs and symptoms of secondary infection and told to f/u with pcp in 1-2 days. Pt was thouroughly instructed on how to take the steroids and how to taper, pt agreed with plan and understood d/c instructions. d/c in stable condition vs stable. Disposition Clinical Impression: Poison yesenia dermatitis Disposition: HOME SELF-CARE Condition: Good Instructions: Poison Yesenia (ED) Additional Instructions: PLease use medications as discussed including the steroids taper, application of calamine and use of over the counter benadryl. Please follow exposure precaution such as washing sheets/clothing exposed to rash daily as discussed. Please follow-up with PCP in 1-2 days if symptoms persist. Please return to the ER for any signs of infection or worsening symptoms as discussed. Prescriptions: Calamine/Zinc Oxide Lotion [Calamine Lotion] 1 applic TOPICAL BID PRN 14 Days # 1 bottle PRN Reason: Itching predniSONE 10 mg PO DIRECTED 14 Days #28 tab Is patient prescribed a controlled substance at d/c from ED?: No Referrals: Shila Kessler MD [Primary Care Provider] - 1-2 days Time of Disposition: 23:28
== END 2017-11-11 23:43 | disposition home or self-care (01) ==
LOC: EC 22:46
DX: L23.7 Allergic contact dermatitis due to plants, except food (principal); F17.200 Nicotine dependence, unspecified, uncomplicated
CPT/HCPCS: 99282; J7512

== ENCOUNTER 2023-07-06 15:50 | Emergency (ER) | payer BC ==
[2023-07-06] MEDS: KETOROLAC 15 MG/ML 1 ML VIAL IM STA (16:18)
--- NOTE | 2023-07-06 16:32 | ED ---
Lower Extremity Injury HPI - General Chief Complaint: Extremity Injury, Lower Stated Complaint: Pain in right leg Time Seen by Provider: 07/06/23 16:05 Source: patient, RN notes reviewed Mode of arrival: ambulatory Limitations: no limitations - History of Present Illness Initial Comments: 52-year-old male presents to emergency department chief complaint of right thigh pain. Patient states he was helping a friend move furniture yesterday when he stepped down the stairs and felt a popping sensation in his thigh. Denies injury to his knee, ankle or hip. Patient denies fall at this time. Patient denies any numbness or tingling to the right lower extremity or to the area of pain. He has taken Motrin at home yesterday evening with minimal relief. - Related Data Home Medications Medication Instructions Recorded Confirmed Amitriptyline HCl 1 tab PO DAILY 06/19/22 06/19/22 DULoxetine HCL [Cymbalta] 1 tab PO DAILY 06/19/22 06/19/22 Ergocalciferol [Vitamin D2 (1250 1 tab PO DAILY 06/19/22 06/19/22 Mcg = 47043 Iu)] Allergies Allergy/AdvReac Type Severity Reaction Status Date / Time No Known Allergies Allergy Verified 07/06/23 15:56 Review of Systems ROS Statement: Those systems with pertinent positive or pertinent negative responses have been documented in the HPI. ROS Other: All systems not noted in ROS Statement are negative. Past Medical History Past Medical History: Musculoskeletal Disorder, Rheumatoid Arthritis (RA) Additional Past Medical History / Comment(s): DDD in lumbar area., History of Any Multi-Drug Resistant Organisms: None Reported Past Surgical History: No Surgical Hx Reported Additional Past Surgical History / Comment(s): ,pain clinic injections. MUSCLE BX-02/2016, Past Anesthesia/Blood Transfusion Reactions: No Reported Reaction Additional Past Anesthesia/Blood Transfusion Reaction / Comment(s): Only Novacain for teeth Past Psychological History: No Psychological Hx Reported Smoking Status: Current some day smoker Past Alcohol Use History: Occasional Past Drug Use History: None Reported - Past Family History Mother Family Medical History: No Reported History Father Family Medical History: Pulmonary Embolus Additional Family Medical History / Comment(s): ? General Exam Limitations: no limitations General appearance: alert, in no apparent distress Head exam: Present: atraumatic, normocephalic, normal inspection Eye exam: Present: normal appearance, PERRL, EOMI. Absent: scleral icterus, conjunctival injection, periorbital swelling ENT exam: Present: normal exam, mucous membranes moist Neck exam: Present: normal inspection. Absent: tenderness, meningismus, lymphadenopathy Respiratory exam: Present: normal lung sounds bilaterally. Absent: respiratory distress, wheezes, rales, rhonchi, stridor Cardiovascular Exam: Present: regular rate, normal rhythm, normal heart sounds. Absent: systolic murmur, diastolic murmur, rubs, gallop, clicks GI/Abdominal exam: Present: soft, normal bowel sounds. Absent: distended, tenderness, guarding, rebound, rigid Extremities exam: Present: normal inspection, full ROM, normal capillary refill. Absent: tenderness, pedal edema, joint swelling, calf tenderness Right Hip exam: Present: normal inspection Upper Leg exam: Present: tenderness (tenderness to palpation over lateral thigh), swelling (mild swelling over lateral leg). Absent: abrasion, laceration, ecchymosis, deformity Knee exam: Present: normal inspection, tenderness. Absent: full ROM (limited fl exion/extension due to pain in thigh) Lower Leg exam: Present: normal inspection, full ROM. Absent: tenderness, swelling, ecchymosis Ankle exam: Present: normal inspection Neurovascular tendon exam: Present: no vascular compromise. Absent: pulse deficit, abnormal cap refill, motor deficit, sensory deficit, tendon deficit Back exam: Present: normal inspection Neurological exam: Present: alert, oriented X3, CN II-XII intact Psychiatric exam: Present: normal affect, normal mood Skin exam: Present: warm, dry, intact, normal color. Absent: rash Course Vital Signs 07/06/23 07/06/23 15:52 16:33 Temperature 98.3 F 98.4 F Pulse Rate 91 99 Respiratory 16 20 Rate Blood Pressure 143/90 134/94 O2 Sat by Pulse 97 97 Oximetry Procedures - Orthopedic Splinting/Casting Injury #1 Side: right Lower Extremity Injury Location: long leg Lower Extremity Immobilizer: Riccardo wrap Medical Decision Making - Medical Decision Making Was pt. sent in by a medical professional or institution (, PA, NURSE TECHNICIAN, urgent care, hospital, or group home...) When possible be specific @ -No Did you speak to anyone other than the patient for history (EMS, parent, family, police, friend...)? What history was obtained from this source @ -No Did you review nursing and triage notes (agree or disagree)? Why? @ -I reviewed and agree with nursing and triage notes Were old charts reviewed (outside hosp., previous admission, EMS record, old EKG, old radiological studies, urgent care reports/EKG's, group home records)? Report findings @ -No old charts were reviewed Differential Diagnosis (chest pain, altered mental status, abdominal pain women, abdominal pain men, vaginal bleeding, weakness, fever, dyspnea, syncope, headache, dizziness, GI bleed, back pain, seizure, CVA, palpatations, mental health, musculoskeletal)? @ -Differential Musculoskeletal Muscular strain, contusion, ligament sprain, fracture, arthritis, septic arthritis, bursitis, cellulitis, muscle spasm, nerve compression, DVT, arterial occlusion, herpes zoster, electrolyte abnormality, tumor.... This is not meant to be in all inclusive list EKG interpreted by me (3pts min.). @ -None X-rays interpreted by me (1pt min.). @ -Complete xray of right knee with no signs of acute fracture. CT interpreted by me (1pt min.). @ -None done U/S interpreted by me (1pt. min.). @ -None done What testing was considered but not performed or refused? (CT, X-rays, U/S, labs)? Why? @ -None What meds were considered but not given or refused? Why? @ -None Did you discuss the management of the patient with other professionals (professionals i.e. , PA, NURSE TECHNICIAN, lab, RT, psych nurse, director social, boat canvas maker installer, teacher, sanitation officer, casey saw operator)? Give summary @ -No Was smoking cessation discussed for >3mins.? @ -No Was critical care preformed (if so, how long)? @ -No Were there social determinants of health that impacted care today? How? (Homelessness, low income, unemployed, alcoholism, drug addiction, transpo rtation, low edu. Level, literacy, decrease access to med. care, shelter, rehab)? @ -No Was there de-escalation of care discussed even if they declined (Discuss DNR or withdrawal of care, Hospice)? DNR status @ -No What co-morbidities impacted this encounter? (DM, HTN, Smoking, COPD, CAD, Cancer, CVA, ARF, Chemo, Hep., AIDS, mental health diagnosis, sleep apnea, morbid obesity)? @ -smoking Was patient admitted / discharged? Hospital course, mention meds given and route, prescriptions, significant lab abnormalities, going to OR and other pertinent info. @ -52-year-old male with chief complaint of right thigh pain. Was given shot of Toradol for anti-inflammatory pain relief. Complete xray of right knee with no signs of acute fracture. Was placed in Riccardo wrap to aid in decrease swelling. Recommend using Tylenol Motrin for symptomatic relief, staying the affected leg, elevating, compression with Riccardo wrap, ice for the first 3 days then cycled to heat. Patient given referral to orthopedics to make an appointment over the next week or 2 for further evaluation and treatment symptoms persist. Patient also advised to follow-up with primary care physician. Undiagnosed new problem with uncertain prognosis? @ -No Drug Therapy requiring intensive monitoring for toxicity (Heparin, Nitro, Insulin, Cardizem)? @ -No Were any procedures done? @ -Right thigh Riccardo wrap Diagnosis/symptom? @ -quadriceps muscle strain, sprain Acute, or Chronic, or Acute on Chronic? @ -Acute Uncomplicated (without systemic symptoms) or Complicated (systemic symptoms)? @ -Uncomplicated Side effects of treatment? @ -No Exacerbation, Progression, or Severe Exacerbation? @ -No Poses a threat to life or bodily function? How? (Chest pain, [place], [place], pneumonia, PE, COPD, DKA, ARF, appy, cholecystitis, CVA, Diverticulitis, Homicidal, Suicidal, threat to staff... and all critical care pts) @ -No Disposition Clinical Impression: Strain of quadriceps Narrative: Please return to the Emergency Department if symptoms worsen or any other concerns. Provided with referral to orthopedics if symptoms worsen or persist over the next 2 weeks. Disposition: HOME SELF-CARE Condition: Good Instructions (If sedation given, give patient instructions): Muscle Strain (ED) Is patient prescribed a controlled substance at d/c from ED?: No Referrals: Shila Kessler MD [Primary Care Provider] - 1-2 days Devang Miller DO [Doctor of Osteopathic Medicine] - 1-2 days Time of Disposition: 16:48
--- NOTE | 2023-07-06 16:40 | XR ---
EXAMINATION TYPE: XR knee complete RT DATE OF EXAM: 07/06/2023 4:32 PM CLINICAL INDICATION:Male, 52 years old with history of pain, swelling; COMPARISON: None. TECHNIQUE: XR knee complete RT; examined in Frontal, lateral and oblique projections. FINDINGS: No evidence of any acute osseous pathology, soft tissue swelling, or joint effusion is no josue. Tricompartmental osteophyte formation involving the femoral condyles, tibial plateau and patella . Mild joint space narrowing. IMPRESSION: 1. No acute osseous pathology. 2. Mild tricompartmental osteoarthritic changes.
[2023-07-06 16:51] VITALS: BP 134/94; PULSE 99; RESP 20; TEMP 98.4
== END 2023-07-06 16:59 | disposition home or self-care (01) ==
LOC: EC 15:50
DX: S76.111A Strain of right quadriceps muscle, fascia and tendon, initial encounter (principal); F17.200 Nicotine dependence, unspecified, uncomplicated; W10.9XXA Fall (on) (from) unspecified stairs and steps, initial encounter
CPT/HCPCS: 73562; 99283; 96372; J1885

== ENCOUNTER 2024-08-02 22:19 | Inpatient (IN) | payer BC ==
--- NOTE | 2024-08-02 22:36 | ED ---
Chest Pain HPI - General Chief Complaint: Chest Pain Stated Complaint: Chest pain Time Seen by Provider: 08/02/24 22:31 Source: patient, RN notes reviewed, old records reviewed Mode of arrival: ambulatory Limitations: no limitations - History of Present Illness Initial Comments: This is a 54-year-old male to the ER for evaluation patient presented for e valuation of chest pain chest pain that woke him up sleep this morning was persistent throughout the day does appear to come and go maybe a little worse tonight causing him to come to the ER but better here in the emergency department no shortness of breath no history of high blood pressure cholesterol diabetes, non-smoker as he further thinks what he thinks he may have high cholesterol but does not take any medication for it, patient has no history of heart disease no prior ER visits for chest pain or no stress test MD Complaint: chest pain -: days(s) Onset: during rest, during exertion Pain Location: substernal, left chest, epigastric Pain Radiation: LUE Severity: severe Severity scale (1-10): 9 Quality: tightness Consistency: constant Improves With: nothing Worsens With: nothing Anginal Symptoms: dyspnea, sense of impending doom Other Symptoms: palpitations Treatments Prior to Arrival: none - Related Data Home Medications Medication Instructions Recorded Confirmed Amitriptyline HCl 1 tab PO DAILY 06/19/22 06/19/22 DULoxetine HCL [Cymbalta] 1 tab PO DAILY 06/19/22 06/19/22 Ergocalciferol [Vitamin D2 (1250 1 tab PO DAILY 06/19/22 06/19/22 Mcg = [id number] Iu)] Allergies Allergy/AdvReac Type Severity Reaction Status Date / Time No Known Allergies Allergy Verified 08/02/24 22:23 Review of Systems ROS Statement: Those systems with pertinent positive or pertinent negative responses have been documented in the HPI. ROS Other: All systems not noted in ROS Statement are negative. EKG Findings - EKG Comments: EKG Findings:: EKG is sinus 86 NE 156 QRS 92 QTc 407 patient does have anterior ST depression - EKG Results: EKG: interpreted by BEULAH Past Medical History Past Medical History: Musculoskeletal Disorder, Rheumatoid Arthritis (RA) Additional Past Medical History / Comment(s): DDD in lumbar area., History of Any Multi-Drug Resistant Organisms: None Reported Past Surgical History: No Surgical Hx Reported Additional Past Surgical History / Comment(s): ,pain clinic injections. MUSCLE BX-02/2016, Past Anesthesia/Blood Transfusion Reactions: No Reported Reaction Additional Past Anesthesia/Blood Transfusion Reaction / Comment(s): Only Novacain for teeth Past Psychological History: No Psychological Hx Reported Smoking Status: Current some day smoker Past Alcohol Use History: Rare Past Drug Use History: Marijuana - Past Family History Mother Family Medical History: No Reported History Father Family Medical History: Pulmonary Embolus Additional Family Medical History / Comment(s): ? General Exam Limitations: no limitations General appearance: alert, in no apparent distress Head exam: Present: atraumatic, normocephalic, normal inspection Eye exam: Present: normal appearance, PERRL, EOMI. Absent: scleral icterus, conjunctival injection, periorbital swelling ENT exam: Present: normal exam, mucous membranes moist Neck exam: Present: normal inspection. Absent: tenderness, meningismus, lymphadenopathy Respiratory exam: Present: normal lung sounds bilaterally. Absent: respiratory distress, wheezes, rales, rhonchi, stridor Cardiovascular Exam: Present: regular rate, normal rhythm, normal heart sounds. Absent: systolic murmur, diastolic murmur, rubs, gallop, clicks GI/Abdominal exam: Present: soft, normal bowel sounds. Absent: distended, tenderness, guarding, rebound, rigid Extremities exam: Present: normal inspection, full ROM, normal capillary refill. Absent: tenderness, pedal edema, joint swelling, calf tenderness Back exam: Present: normal inspection Neurological exam: Present: alert, oriented X3, CN II-XII intact Psychiatric exam: Present: normal affect, normal mood Skin exam: Present: warm, dry, intact, normal color. Absent: rash Course Vital Signs 08/02/24 08/02/24 22:23 23:25 Temperature 97.6 F Pulse Rate 93 87 Respiratory 18 20 Rate Blood Pressure 133/88 124/110 O2 Sat by Pulse 98 97 Oximetry - Reevaluation(s) Reevaluation #1: 08/02/24 23:53 Medical records reviewed Reevaluation #2: 08/02/24 23:53 Multiple repeat repeat EKGs done here secondary to initial EKG showing ST depression, no acute ischemic changes noted Reevaluation #3: 08/03/24 00:19 Patient still with chest pain here in the ER occasional, relapsing remitting, no shortness of breath no diaphoresis Patient informed of results questions answered Reevaluation #4: Was pt. sent in by a medical professional or institution (PAUL Su, HAND FRETTED INSTRUMENT MAKER, urgent care, hospital, or usp...) When possible be specific @ -no Did you speak to anyone other than the patient for history (EMS, parent, family, police, friend...)? What history was obtained from this source @ -no Did you review nursing and triage notes (agree or disagree)? Why? @ -agree Are old charts reviewed (outside hosp., previous admission, EMS record, old EKG, old radiological studies, urgent care reports/EKG's, usp records)? Report findings @ -yes Differential Diagnosis (chest pain, altered mental status, abdominal pain women, abdominal pain men, vaginal bleeding, weakness, fever, dyspnea, syncope, headache, dizziness, GI bleed, back pain, seizure, CVA, palpatations, mental health, musculoskeletal)? @ -prior EKG interpreted by me (3pts min.). @ -yes X-rays interpreted by me (1pt min.). @ -yes negative for acute disease CT interpreted by me (1pt min.). @ -no U/S interpreted by me (1pt. min.). @ -no What testing was considered but not performed or refused? (CT, X-rays, U/S, labs)? Why? @ -none What meds were considered but not given or refused? Why? @ -none Did you discuss the management of the patient with other professionals (professionals i.e. PAUL Su, HAND FRETTED INSTRUMENT MAKER, lab, RT, psych nurse, social and human services assistant, cabin agent, teacher, staff electronic warfare officer, wrapper caser)? Give summary @ -no Was smoking cessation discussed for >3mins.? @ -no Was critical care preformed (if so, how long)? @ -no Were there social determinants of health that impacted care today? How? (Homelessness, low income, unemployed, alcoholism, drug addiction, transportation, low edu. Level, literacy, decrease access to med. care, alf, rehab)? @ -none Was there de-escalation of care discussed even if they declined (Discuss DNR or withdrawal of care, Hospice)? DNR status @ -no What co-morbidities impacted this encounter? (DM, HTN, Smoking, COPD, CAD, Cancer, CVA, ARF, Chemo, Hep., AIDS, mental health diagnosis, sleep apnea, morbid obesity)? @ -none Was patient admitted / discharged? Hospital course, mention meds given and route, prescriptions, significant lab abnormalities, going to OR and other pertinent info. @ - Undiagnosed new problem with uncertain prognosis? @ -no Drug Therapy requiring intensive monitoring for toxicity (Heparin, Nitro, Ins ulin, Cardizem)? @ -no Were any procedures done? @ -no Diagnosis/symptom? @ - Acute, or Chronic, or Acute on Chronic? @ -Acute Uncomplicated (without systemic symptoms) or Complicated (systemic symptoms)? @ -Complicated Side effects of treatment? @ -no Exacerbation, Progression, or Severe Exacerbation? @ -exacerbation Poses a threat to life or bodily function? How? (Chest pain, USA, PR, pneumonia, PE, COPD, DKA, ARF, appy, cholecystitis, CVA, Diverticulitis, Homicidal, Suicidal, threat to staff... and all critical care pts) @ -yes Reevaluation #5: Differential Chest Pain: Stable Angina, Unstable Angina, STEMI, NSTEMI Aortic Dissection, Pneumothorax, Musculoskeletal, Esophageal Spasm GERD, Cholecystitis, Pancreatitis, Zoster, this is not meant to be an all-inclusive list. - Consultations Consultation #1: Spoke with cardiology aware of elevated troponin Chest Pain MDM - MDM 54 male to be admitted for non-ST elevated PR, initial EKG with some ST depression that did soften, patient placed on heparin aspirin and admitted under ACS protocol Critical Care Time Critical Care Time: Yes Total Critical Care Time: 31 Disposition Clinical Impression: Chest pain, ST elevation myocardial infarction (STEMI) Disposition: ADMITTED IP TO THIS HOSP Condition: Serious Is patient prescribed a controlled substance at d/c from ED?: No Referrals: None,Stated [REFERRING] - 1-2 days Time of Disposition: 23:55
[2024-08-02 23:40] LABS: Basophils # (A) 0.07 10*3/uL (0.00-0.10); Basophils % (A) 0.6 %; Eosinophils # (A) 0.15 10*3/uL (0.04-0.35); Eosinophils % (A) 1.2 %; HCT 47.4 % (39.6-50.0); HGB 15.9 g/dL (13.0-17.0); Lymphocytes # (A) 2.04 10*3/uL (0.90-5.00); Lymphocytes % (A) 16.2 %; MCHC 33.5 g/dL (32.0-37.0); MCV 83.6 fL (80.0-97.0); Mean Platelet Volume 11.7 fL (9.5-12.2); Monocytes # (A) 1.02 10*3/uL (0.20-1.00); Monocytes % (A) 8.1 %; Neutrophils % (A) 73.5 %; Platelet Count 198 10*3/uL (140-440); RBC 5.67 10*6/uL (4.40-5.60); RDW 12.5 % (11.5-14.5); WBC 12.63 10*3/uL (4.50-10.00)
[2024-08-02 23:51] LABS: ALT 74 U/L (4-49); AST 303 U/L (17-59); African American GFR (CKD) >90 (>60 ml/min/1.73 sqM); Albumin 4.8 g/dL (3.5-5.0); Alkaline Phosphatase 74 U/L (38-126); Anion Gap 10 mmol/L; Blood Urea Nitrogen 12 mg/dL (9-20); Calcium 10.4 mg/dL (8.4-10.2); Carbon Dioxide 29 mmol/L (22-30); Chloride 99 mmol/L (98-107); Glucose 104 mg/dL (74-99); Lipase 1051 U/L (23-300); Magnesium 1.9 mg/dL (1.6-2.3); Non-African American GFR(CKD) 89 (>60 ml/min/1.73 sqM); Potassium 4.1 mmol/L (3.5-5.1); Sodium 138 mmol/L (137-145); Total Bilirubin 0.9 mg/dL (0.2-1.3); Total Protein 7.5 g/dL (6.3-8.2)
[2024-08-02 23:53] LABS: Partial Thromboplastin Time 26.4 sec (22.0-30.0)
[2024-08-02 23:59] LABS: NT-Pro-B-Type Natriuretic Pept 2940 pg/mL
[2024-08-03] MEDS ORDERED: MORPHINE SULFATE 4 MG/ML SYRINGE IV PRN (00:16)
[2024-08-03] MEDS ORDERED: NITROGLYCERIN SL TABS 0.4 MG TAB SUBLINGUAL PRN (00:16)
[2024-08-03] MEDS: METOPROLOL TARTRATE 5 MG/5 ML VIAL IVP STA (00:17)
[2024-08-03] MEDS: HEPARIN SOD,PORK IN 0.45% NACL 25,000 UNIT in 0.45% NACL 1 250ML.BAG IV SCH (00:18)
[2024-08-03] MEDS: HEPARIN SODIUM 1,000 UN/ML (10ML VL) IV ONE ×2 (00:18→14:29)
--- NOTE | 2024-08-03 00:20 | XR ---
EXAM: XR Chest, 2 Views CLINICAL HISTORY: ITS.REASON XR Reason: Chest Pain TECHNIQUE: Frontal and lateral views of the chest. COMPARISON: No previous studies. FINDINGS: Lungs: Unremarkable. No consolidative changes or pleural effusions. Pleural space: See above. Heart: Heart is normal in size. No cardiomegaly. Mediastinum: Unremarkable. Normal mediastinal contour. Bones/joints: Mild to moderate degenerative disc disease of the thoracic spine, kyphosis, levoscoliosis. No acute fracture. IMPRESSION: No consolidative changes or pleural effusions.
[2024-08-03] MEDS: ASPIRIN 81 MG PO STA (00:21)
[2024-08-03] MEDS: ATORVASTATIN 80 MG TAB PO STA ×2 (00:58→07:45)
[2024-08-03] MEDS: NITROGLYCERIN OINT 1 INCH/GM PACKET TOPICAL STA (00:58)
[2024-08-03] MEDS: KETOROLAC 15 MG/ML 1 ML VIAL IVP STA (06:23)
[2024-08-03] MEDS: HEPARIN SODIUM 1,000 UN/ML (10ML VL) IV PRN (07:00)
[2024-08-03] MEDS ORDERED: ALPRAZolam 0.5 MG TAB PO PRN (07:19)
[2024-08-03] MEDS ORDERED: ALPRAZolam 0.25 MG TAB PO PRN (07:19)
--- NOTE | 2024-08-03 07:27 | P.CRDCN ---
History of Present Illness History of present illness: HISTORY OF PRESENTING ILLNESS This is a pleasant 54-year-old with past medical history significant for tobacco abuse and possible family history of CAD. 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 Patient states that early yesterday morning he started to have chest pain and it lasted approximately 1 hour and then went away. Chest pain was central and felt like a pressure with some associated diaphoresis and some sharp pain going down his left arm. Pain resolved after approximately an hour however reoccurred when he went to work and lasted pretty much all throughout the workday. Later that night he came to the emergency department when he was still having chest discomfort and chest pain resolved when he was in the emergency department. He was found to have non-STEMI with troponin 44 up to the 60s. EKG shows sinus rhythm with ST depressions V1 through V3. Currently denies any chest pain or discomfort whatsoever. Found to have low-grade fever 100.2 and leukocytosis with white blood cells 12. Denies any prior cardiac workup. He does smoke a pack per day, no illicit drugs. Believes his father may have had heart disease however he is unsure. REVIEW OF SYSTEMS At the time of my exam: CONSTITUTIONAL: Denies fever or chills. CARDIOVASCULAR: +chest pain, no shortness of breath, orthopnea, PND or palpitations. RESPIRATORY: Denies cough. GASTROINTESTINAL: Denies abdominal pain, diarrhea, constipation, nausea or vomiting. MUSCULOSKELETAL: Denies myalgias. NEUROLOGIC: Denies numbness, tingling or weakness. ENDOCRINE: Denies fatigue, weight change, polydipsia or polyurina. GENITOURINARY: Denies burning, hematuria or urgency with micturation. HEMATOLOGIC: Denies history of anemia or bleeding. PHYSICAL EXAMINATION Vital signs reviewed. CONSTITUTIONAL: No apparent distress. HEENT: Head is normocephalic. Pupils are equal, round. Sclerae anicteric. Mucous membranes of the mouth are moist. No JVD. No carotid bruit. CHEST EXAMINATION: Lungs are clear to auscultation. No chest wall tenderness is noted on palpation or with deep breathing. HEART EXAMINATION: Regular rate and rhythm. S1, S2 heard. No murmurs, gallops or rub. ABDOMEN: Soft, nontender. Positive bowel sounds. EXTREMITIES: 2+ peripheral pulses, no lower extremity edema and no calf te nderness. NEUROLOGIC EXAMINATION: Patient is awake, alert and oriented x3. ASSESSMENT Non-STEMI Tobacco abuse Leukocytosis, borderline fever however no other significant symptoms Questionable family history of CAD PLAN Patient with non-STEMI and may have already completed infarct. Check 2D echo. Continue aspirin, heparin, beta-maribel, Lipitor. Discussed risks and benefits of heart catheterization patient is agreeable. Tobacco cessation. Further recommendations to follow. Past Medical History Past Medical History: Musculoskeletal Disorder, Osteoarthritis (OA), Rheumatoid Arthritis (RA) Additional Past Medical History / Comment(s): DDD in lumbar area., carpal tunnel History of Any Multi-Drug Resistant Organisms: None Reported Past Surgical History: No Surgical Hx Reported Additional Past Surgical History / Comment(s): ,pain clinic injections. MUSCLE BX-02/2016, Past Anesthesia/Blood Transfusion Reactions: No Reported Reaction Additional Past Anesthesia/Blood Transfusion Reaction / Comment(s): Only Novacain for teeth Past Psychological History: No Psychological Hx Reported Smoking Status: Current some day smoker Past Alcohol Use History: Rare Additional Past Alcohol Use History / Comment(s): Smokes 1 PPD SINCE 1986 Past Drug Use History: Marijuana - Past Family History Mother Family Medical History: No Reported History Father Family Medical History: Pulmonary Embolus Additional Family Medical History / Comment(s): ? Medications and Allergies Home Medications Medication Instructions Recorded Confirmed Type Ibuprofen [Motrin Ib] 600 mg PO DAILY PRN 08/03/24 08/03/24 History Allergies Allergy/AdvReac Type Severity Reaction Status Date / Time No Known Allergies Allergy Verified 08/02/24 22:23 Physical Exam Vitals: Vital Signs Temp Pulse Pulse Resp BP BP Pulse Ox 08/03/24 04:00 99.8 F H 88 16 112/70 96 08/03/24 02:00 98.4 F 85 16 124/85 95 08/03/24 01:00 100.2 F H 75 16 122/85 97 08/02/24 23:25 87 20 124/110 97 08/02/24 22:23 97.6 F 93 18 133/88 98 Intake and Output 08/02/24 08/03/24 08/03/24 22:59 06:59 14:59 Intake Total 66.827 Balance 66.827 Intake: Intake, IV Titration 66.827 Amount Heparin Sod,Pork in 0.45% 66.827 NaCl 25,000 unit In 0.45 % NaCl 1 250ml.bag @ 10. 02 UNITS/KG/HR 9.999 mls/ hr IV .Q24H [facility] Rx#: [id number] Other: Voiding Method Toilet # Voids 1 Weight 99.79 kg 95.5 kg Results 08/02/24 22:08/02/24 22:31 Cardiac Enzymes 08/02/24 08/02/24 08/03/24 Range/Units 22:31 22:31 02:25 AST 303 H (17-59) U/L Troponin I 44.200 H* 60.700 H* (0.000-0.034) ng/mL 08/03/24 Range/Units 05:46 AST (17-59) U/L Troponin I 63.700 H* (0.000-0.034) ng/mL Coagulation 08/02/24 08/03/24 Range/Units 22:31 05:46 PT 11.0 (10.0-12.5) sec APTT 26.4 26.2 (22.0-30.0) sec CBC 08/02/24 Range/Units 22:31 WBC 12.63 H (4.50-10.00) 10*3/uL RBC 5.67 H (4.40-5.60) 10*6/uL Hgb 15.9 (13.0-17.0) g/dL Hct 47.4 (39.6-50.0) % Plt Count 198 (140-440) 10*3/uL Comprehensive Metabolic Panel 08/02/24 Range/Units 22:31 Sodium 138 (137-145) mmol/L Potassium 4.1 (3.5-5.1) mmol/L Chloride 99 (98-107) mmol/L Carbon Dioxide 29 (22-30) mmol/L BUN 12 (9-20) mg/dL Creatinine 0.97 (0.66-1.25) mg/dL Glucose 104 H (74-99) mg/dL Calcium 10.4 H (8.4-10.2) mg/dL AST 303 H (17-59) U/L ALT 74 H (4-49) U/L Alkaline Phosphatase 74 (38-126) U/L Total Protein 7.5 (6.3-8.2) g/dL Albumin 4.8 (3.5-5.0) g/dL Current Medications Generic Name Dose Route Start Last Admin Trade Name Freq PRN Reason Stop Dose Admin Alprazolam 0.25 mg 08/03/24 07:19 Alprazolam 0.25 Mg Tab PO Q6HR PRN Mild Anxiety Alprazolam 0.5 mg 08/03/24 07:19 Alprazolam 0.5 Mg Tab PO Q6HR PRN Moderate Anxiety Aspirin 81 mg 08/04/24 09:00 Aspirin 81 Mg PO DAILY [facility] Aspirin 325 mg 08/03/24 07:19 Aspirin 325 Mg Tab PO 08/03/24 07:20 ONCE STA Atorvastatin Calcium 80 mg 08/03/24 09:00 Atorvastatin 80 Mg Tab PO DAILY [facility] Atorvastatin Calcium 80 mg 08/03/24 07:19 Atorvastatin 80 Mg Tab PO 08/03/24 07:20 ONCE STA Heparin Sodium (Porcine) 0 unit 08/03/24 00:07 08/03/24 07:00 Heparin Sodium 1,000 Un/Ml (10ml Vl) IV 4,000 unit PER PROTOCOL PRN Administration Low PTT Protocol Heparin Sodium/Sodium Chloride 250 mls @ 9.999 mls/hr 08/03/24 00:15 08/03/24 06:59 25,000 unit/ Sodium Chloride IV 13.02 units/kg/hr .Q24H [facility] 12.993 mls/hr Titration Protocol 10.02 UNITS/KG/HR Heparin Sodium (Porcine) 10, 1,001 mls @ 999 mls/hr 08/04/24 07:00 000 unit/ Sodium Chloride IRRIGATION 08/04/24 23:00 ONCE PRN INTRA-OP Heparin Sodium (Porcine) 2,500 250.5 mls @ 250 mls/hr 08/04/24 07:00 unit/ Sodium Chloride IRRIGATION 08/04/24 23:00 ONCE PRN INTRA-OP Metoprolol Tartrate 25 mg 08/03/24 09:00 Metoprolol Tartrate 25 Mg Tab PO BID [facility] Morphine Sulfate 4 mg 08/03/24 00:16 Morphine Sulfate 4 Mg/Ml Syringe IV Q4HR PRN Chest Pain Nitroglycerin 0.4 mg 08/03/24 00:16 Nitroglycerin Sl Tabs 0.4 Mg Tab SUBLINGUAL Q5M PRN Chest Pain Intake and Output 08/02/24 08/03/24 08/03/24 22:59 06:59 14:59 Intake Total 66.827 Balance 66.827 Intake: Intake, IV Titration 66.827 Amount Heparin Sod,Pork in 0.45% 66.827 NaCl 25,000 unit In 0.45 % NaCl 1 250ml.bag @ 10. 02 UNITS/KG/HR 9.999 mls/ hr IV .Q24H [facility] Rx#: [id number] Other: Voiding Method Toilet # Voids 1 Weight 99.79 kg 95.5 kg 08/02/24 22:31 08/02/24 22:31
[2024-08-03] MEDS: METOPROLOL TARTRATE 25 MG TAB PO SCH (07:45)
[2024-08-03] MEDS: ASPIRIN 325 MG TAB PO STA (07:45)
--- NOTE | 2024-08-03 13:38 | P.HPIM ---
History of Present Illness H&P Date: 08/03/24 History of present illness; Patient is a 54-year-old with tobacco abuse who presents with chest pain. He states symptoms began yesterday morning he started to have chest pain and it lasted approximately 1 hour and then went away. Chest pain was central and felt like a pressure with some associated diaphoresis and some sharp pain going down his left arm. Pain was 10 out of 10 in severity. Pain resolved after approximately an hour however reoccurred when he went to work and lasted pretty much all throughout the workday. Later that night he came to the emergency department when he was still having chest discomfort and chest pain resolved when he was in the emergency department. Currently denies any chest pain or discomfort whatsoever. Currently patient reports absence of fever, chills, chest pain, palpitations, diaphoresis, dyspnea, cough, abdominal pain, weakness, dizziness, headache, and dysuria. Spoke with the ER physician, patient admission was accepted by internal medicine service for treatment. REVIEW OF SYSTEMS: Pertinent positives and negatives noted in HPI. PHYSICAL EXAMINATION: Vitals reviewed GENERAL: Resting comfortably in bed. Obese. EYES: PERRL, no scleral injection or icterus. No vision loss HENT: Normocephalic, atraumatic, hearing grossly intact, moist mucous membranes NECK: No tracheal deviation, full range of motion. CARDIOVASCULAR: S1 and S2 present. No murmurs, rubs, or gallops. PULMONARY: Chest is clear to auscultation, no wheezing, rhonchi, or crackles. ABDOMEN: Soft, nontender, nondistended. No palpable organomegaly. MUSCULOSKELETAL: No apparent joint swelling and deformities. EXTREMITIES: No apparent cyanosis, clubbing. No pedal edema. NEUROLOGICAL: Alert and oriented. Gross neurological examination with no apparent focal deficits. SKIN: No apparent rashes. ER FINDINGS: Labs significant for WBC 12.6, glucose 24, AST 303, ALT 74, troponin 44.2 => 60.7 => 63.7, proBNP 2940, lipase 1051 EKG independently interpreted showed sinus rhythm heart rate of 86, QTc 407, ST depressions V1 through V3, no T-wave inversions seen. Chest x-ray done independently interpreted showed no acute cardiopulmonary process. Assessment and Plan: In summary, patient is a 54-year-old with tobacco abuse who presents with chest pain. # NSTEMI #Tobacco dependence - Troponin 44.2 => 60.7 => 63.7 Echocardiogram ordered Continue aspirin 81 mg daily Continue heparin infusion Continue metoprolol 25 mg twice daily Continue Lipitor 80 mg daily Counseled patient on smoking cessation Cardiac catheterization planned today Cardiology consulted #Leukocytosis, likely reactive WBC 12.6, Tmax 100.2 F, no obvious source of infection Continue monitor symptoms #Elevated lipase #Transaminitis Asymptomatic Continue to monitor CMP Chronic Medical Conditions #Tobacco dependence DVT ppx: Heparin infusion Code status: Full code F: P.o. E: Replete as needed N: Heart healthy diet A: Ambulatory Anticipated discharge place: Home Anticipated discharge time: 1 to 2 days Dictation was produced using [employer] dictation software. Please excuse any grammatical, word or spelling errors. Past Medical History Past Medical History: Musculoskeletal Disorder, Osteoarthritis (OA), Rheumatoid Arthritis (RA) Additional Past Medical History / Comment(s): DDD in lumbar area., carpal tunnel History of Any Multi-Drug Resistant Organisms: None Reported Past Surgical History: No Surgical Hx Reported Additional Past Surgical History / Comment(s): ,pain clinic injections. MUSCLE BX-02/2016, Past Anesthesia/Blood Transfusion Reactions: No Reported Reaction Additional Past Anesthesia/Blood Transfusion Reaction / Comment(s): Only Novacain for teeth Past Psychological History: No Psychological Hx Reported Smoking Status: Current some day smoker Past Alcohol Use History: Rare Additional Past Alcohol Use History / Comment(s): Smokes 1 PPD SINCE 1986 Past Drug Use History: Marijuana - Past Family History Mother Family Medical History: No Reported History Father Family Medical History: Pulmonary Embolus Additional Family Medical History / Comment(s): ? Medications and Allergies Home Medications Medication Instructions Recorded Confirmed Type Ibuprofen [Motrin Ib] 600 mg PO BID PRN 08/03/24 08/03/24 History Allergies Allergy/AdvReac Type Severity Reaction Status Date / Time No Known Allergies Allergy Verified 08/03/24 07:43 Physical Exam Vitals: Vital Signs Temp Pulse Pulse Resp BP BP Pulse Ox 08/03/24 04:00 99.8 F H 88 16 112/70 96 08/03/24 02:00 98.4 F 85 16 124/85 95 08/03/24 01:00 100.2 F H 75 16 122/85 97 08/02/24 23:25 87 20 124/110 97 08/02/24 22:23 97.6 F 93 18 133/88 98 Intake and Output 08/02/24 08/03/24 08/03/24 22:59 06:59 14:59 Intake Total 66.827 Balance 66.827 Intake: Intake, IV Titration 66.827 Amount Heparin Sod,Pork in 0.45% 66.827 NaCl 25,000 unit In 0.45 % NaCl 1 250ml.bag @ 10. 02 UNITS/KG/HR 9.999 mls/ hr IV .Q24H [facility] Rx#: [id number] Other: Voiding Method Toilet # Voids 1 Weight 99.79 kg 95.5 kg Results CBC & Chem 7: 08/02/24 22:31 08/02/24 22:31 Labs: Abnormal Lab Results - Last 24 Hours (Table) 08/02/24 08/02/24 08/02/24 Range/Units 22:31 22:31 22:31 WBC 12.63 H (4.50-10.00) 10*3/uL RBC 5.67 H (4.40-5.60) 10*6/uL Immature Gran # 0.05 H (0.00-0.04) 10*3/uL Neutrophils # 9.30 H (1.80-7.70) 10*3/uL Monocytes # 1.02 H (0.20-1.00) 10*3/uL Glucose 104 H (74-99) mg/dL Calcium 10.4 H (8.4-10.2) mg/dL AST 303 H (17-59) U/L ALT 74 H (4-49) U/L Troponin I 44.200 H* (0.000-0.034) ng/mL Lipase 1051 H (23-300) U/L 08/03/24 08/03/24 Range/Units 02:25 05:46 WBC (4.50-10.00) 10*3/uL RBC (4.40-5.60) 10*6/uL Immature Gran # (0.00-0.04) 10*3/uL Neutrophils # (1.80-7.70) 10*3/uL Monocytes # (0.20-1.00) 10*3/uL Glucose (74-99) mg/dL Calcium (8.4-10.2) mg/dL AST (17-59) U/L ALT (4-49) U/L Troponin I 60.700 H* 63.700 H* (0.000-0.034) ng/mL Lipase (23-300) U/L Thrombosis Risk Factor Assmnt - Choose All That Apply Each Factor Represents 1 point: Age 41-60 years Thrombosis Risk Factor Assessment Total Risk Factor Score: 1 Thrombosis Risk Factor Assessment Level: Low Risk
--- NOTE | 2024-08-03 13:46 | CA ---
Transthoracic Echo Report Name: Jalen Lyles Age: 54 Gender: M : 1970 Exam Date: 08/03/2024 09:23 Exam Location: [facility] Ht (in): 70 Wt (lb): 220 Ordering Physician: Vinny Archer DO Attending/Referring Phys: [id number], Suzi [employer] Officer Sarah Marquez RDCS Procedure CPT: Indications: nstemi Cardiac Hx: Technical Quality: Fair Contrast 1: Definity Total Dose (mL): 2 Contrast 2: Total Dose (mL): MEASUREMENTS (Male / Female) Normal Values 2D ECHO LV Diastolic Diameter PLAX 4.0 cm 4.2 - 5.9 / 3.9 - 5.3 cm LV Systolic Diameter PLAX 3.8 cm IVS Diastolic Thickness 1.3 cm 0.6 - 1.0 / 0.6 - 0.9 cm LVPW Diastolic Thickness 1.2 cm 0.6 - 1.0 / 0.6 - 0.9 cm LV Relative Wall Thickness 0.6 RV Internal Dim ED PLAX 1.5 cm LVOT Diameter 1.8 cm LA Systolic Diameter LX 2.8 cm 3.0 - 4.0 / 2.7 - 3.8 cm LA Volume 30.4 cm??? 18 - 58 / 22 - 52 cm??? LA Volume Index 13.5 cm???/m??? 16 - 28 cm???/m??? M-MODE Aortic Root Diameter MM 3.2 cm LA Systolic Diameter MM 3.5 cm LA Ao Ratio MM 1.1 AV Cusp Separation MM 1.0 cm DOPPLER AV Peak Velocity 102.1 cm/s AV Peak Gradient 4.2 mmHg AV Mean Velocity 74.3 cm/s AV Mean Gradient 2.5 mmHg AV Velocity Time Integral 20.2 cm LVOT Peak Velocity 71.3 cm/s LVOT Peak Gradient 2.0 mmHg LVOT Velocity Time Integral 14.9 cm LVOT Stroke Volume 38.0 cm??? LVOT Stroke Volume Index 17.5 ml/m??? LVOT Cardiac Index 1282.8 cm???/min???m??? AV Area Cont Eq vti 1.9 cm??? AV Area Cont Eq pk 1.8 cm??? MV Area PHT 3.4 cm??? Mitral E Point Velocity 60.3 cm/s Mitral A Point Velocity 75.1 cm/s Mitral E to A Ratio 0.8 MV Deceleration Time 226.0 ms FINDINGS Left Ventricle Left ventricular ejection fraction is estimated at 30-35%. Mildly increased septal wall thickness. Left ventricular cavity size normal. Severely reduced global left ventricular systolic function. Jackson hypokinetic. Akinetic inferior wall. Right Ventricle Normal right ventricular size. Generalized right ventricular hypokinesis. Right Atrium Normal right atrial size. Left Atrium Normal left atrial size. Mitral Valve Structurally normal mitral valve. Trace mitral regurgitation. No mitral stenosis. Aortic Valve Diffuse thickening (sclerosis) of the aortic valve cusps without reduced excursion. No aortic stenosis. No aortic regurgitation. Tricuspid Valve Structurally normal tricuspid valve. Trace tricuspid regurgitation. No tricuspid stenosis. Pulmonic Valve Pulmonic valve not well visualized. No pulmonic stenosis. Trace pulmonic regurgitation. Pericardium No pericardial or pleural effusion. Aorta Normal size aortic root and proximal ascending aorta. CONCLUSIONS LVEF 30% Mild septal hypertrophy Severely reduced global LV systolic function Akinetic inferior wall. Hypokinetic inferoapical segments No significant valvular dysfunction Previewed by: Dr Aaron Keen (Electronically Signed) Final Date: 03 August 2024 13:45
[2024-08-03] MEDS: SODIUM CHLORIDE 0.9% 1,000 ML IV ONE (14:19)
[2024-08-03] MEDS: HEPARIN SODIUM,PORCINE 10,000 UNIT in SODIUM CHLORIDE 0.9% 1,000 ML IRRIGATION PRN (14:19)
[2024-08-03] MEDS: HEPARIN SODIUM,PORCINE (1 ML) 2,500 UNIT in SODIUM CHLORIDE 0.9% 250 ML IRRIGATION PRN (14:19)
[2024-08-03] MEDS: fentaNYL (PF) 50 MCG/1 ML VIAL IVP ONE (14:25)
[2024-08-03] MEDS: LIDOCAINE 1% INJ 10MG/ML (20 ML MDV) SQ ONE (14:25)
[2024-08-03] MEDS: MIDAZOLAM 2 MG/2 ML VIAL IVP ONE (14:25)
[2024-08-03] MEDS: VERAPAMIL SYRINGE (5 MG/10 ML) INTRAARTER ONE (14:27)
[2024-08-03] MEDS: TICAGRELOR 90 MG TAB PO ONE (14:37)
[2024-08-03] MEDS: NITROGLYCERIN 1000MCG/10ML SYRINGE INTRACORON ONE (14:47)
[2024-08-03] MEDS: IOPAMIDOL-370 100ML BTL INJ ONE ×2 (14:47→15:02)
--- NOTE | 2024-08-03 15:12 | P.PRCINT ---
Percutaneous Coronary Int. - Percutaneous Coronary Intervention Percutaneous Coronary Intervention: PROCEDURES PERFORMED: Left heart catheterization, bilateral coronary angiography, ultrasound guided arterial access, PCI circumflex into OM1 with a 3.25 x 12mm Xience DOMENICO, IVUS circumflex INDICATION: Non-STEMI, NYHA class 4 symptoms CONSENT:I have discussed the risks, benefits and alternative therapies for the above-mentioned procedure and for both sedation/analgesia as well as necessary blood product administration, if indicated, as they pertain to this patient. The patient has indicated understanding and acceptance of the risks and procedures discussed. PROCEDURE: After the risks, benefits and alternatives of the above mentioned procedure explained in detail with the patient, informed consent was obtained. Patient was taken to the catheterization lab and prepped and draped in usual fashion. Ultrasound guidance was used to assess for arterial access. 1% lidocaine was used to anesthetize the right radial artery. A 6-Moldovan sheath was placed in the right radial artery using modified Seldinger technique and ultrasound guidance. Left coronary angiography was performed with a 5-Moldovan JL 3.5 catheter and right coronary angiography was performed with a 5-Moldovan FR5 catheter in various views. A 5-Moldovan FR5 catheter was inserted into the left ventricle and pressure measurements were obtained. The decision was made to perform PCI of the circumflex. Heparin was given. A 6 Moldovan CLS 3.0 guide was used to engage the left main. A 0.014 BMW wire was advanced the distal OM1 branch and additional wire placed in the distal circumflex. Predilation was performed of the circumflex with a 3.0 x 8 mm balloon with resultant shift plaque mainly into the OM 1 ostium. Balloon angioplasty was therefore additionally performed of the circumflex into the OM1 branch. Intravascular ultrasound was performed which showed reference vessel 3.25 mm with more diffuse proximal circumflex mild 20 to 30% stenosis. The OM1 branch appeared mildly bigger and less chance of jailing off circumflex and therefore PCI was performed from the circumflex into OM1 with a 3.25 x 12 mm drug-eluting stent. There was no significant jailing of the circumflex with ELLE-3 flow. Repeat IVUS showed excellend stent apposition with no dissection. Final angiograms were performed. Preintervention there was 99% circumflex stenosis with ELLE II flow and postintervention there was less than 10% stenosis with ELLE-3 flow. The right radial sheath was removed and a TR band was placed with hemostasis achieved. The patient tolerated the procedure well. Patient was transported back to the post catheterization holding area in stable condition. Conscious Sedation: Patient was monitored under the direct supervision of myself for conscious sedation using Versed and fentanyl for a total duration of 36 minutes HEMODYNAMICS: Aorta: 108/72 LV: 104/8, LVEDP 16 SELECTIVE CORONARY ARTERIOGRAPHY: LEFT MAIN: The left main is a large caliber vessel which bifurcates into the LAD and circumflex. There is no significant stenosis. LEFT ANTERIOR DESCENDING CORONARY ARTERY: LAD is a large caliber vessel which wraps around to the apex. There is proximal LAD 40% stenosis and otherwise mild luminal irregularities. LEFT CIRCUMFLEX CORONARY ARTERY: Left circumflex is a large caliber vessel with proximal to mid 20% stenosis and a more focal 99% stenosis at the bifurcation of OM1 and circumflex leading to OM 2 and otherwise mild luminal irregularities. RIGHT CORONARY ARTERY: The right coronary artery is a large caliber vessel which gives off a PDA and PLV branch and is the dominant vessel. There is diffuse 20 to 30% RCA stenosis FINAL IMPRESSION: 1. CAD as described above including proximal LAD 40% stenosis, mid circumflex 99% stenosis, 20 to 30% RCA stenosis 2. High normal left sided filling pressures 3. S/p PCI circumflex into OM1 with a 3.25 x 12mm Xience DOMENICO PLAN: 1. Aggressive risk factor modification per most recent ACC/AHA guidelines. 2. Continue dual antiplatelets with aspirin and Brilinta for 12 months 3. Goal LDL less than 70 4. Tobacco cessation discussed in detail with patient. Gave patient information for [place] quit line.
[2024-08-03] MEDS ORDERED: RX INFO: IV CONTRAST WAS GIVEN 1 EACH MISC MISCELLANE PRN (15:13)
[2024-08-03] MEDS ORDERED: ZOLPIDEM 5 MG TAB PO PRN (15:13)
[2024-08-03] MEDS ORDERED: ATROPINE SULFATE 0.1 MG/ML 10ML SYRINGE IV PRN (15:13)
[2024-08-03] MEDS ORDERED: MAG HYDROX/AL HYDROX/SIMETH 30 ML CUP PO PRN (15:13)
[2024-08-03] MEDS: SODIUM CHLORIDE 0.9% 1,000 ML in EMPTY BAG 1 BAG IV SCH (15:42)
[2024-08-03 16:58] VITALS: BMI 30.2
[2024-08-04 07:10] LABS: Basophils # (A) 0.07 10*3/uL (0.00-0.10); Basophils % (A) 0.9 %; Eosinophils # (A) 0.18 10*3/uL (0.04-0.35); Eosinophils % (A) 2.2 %; HCT 44.9 % (39.6-50.0); HGB 14.9 g/dL (13.0-17.0); Lymphocytes # (A) 2.13 10*3/uL (0.90-5.00); Lymphocytes % (A) 26.3 %; MCH 28.2 pg (27.0-32.0); MCHC 33.2 g/dL (32.0-37.0); Mean Platelet Volume 12.1 fL (9.5-12.2); Monocytes % (A) 9.9 %; Neutrophils # (A) 4.88 10*3/uL (1.80-7.70); Neutrophils % (A) 60.3 %; Platelet Count 156 10*3/uL (140-440); RBC 5.28 10*6/uL (4.40-5.60); RDW 12.7 % (11.5-14.5); WBC 8.09 10*3/uL (4.50-10.00)
[2024-08-04 07:18] LABS: ALT 52 U/L (4-49); AST 131 U/L (17-59); African American GFR (CKD) >90 (>60 ml/min/1.73 sqM); Albumin 3.9 g/dL (3.5-5.0); Alkaline Phosphatase 67 U/L (38-126); Anion Gap 7 mmol/L; Blood Urea Nitrogen 14 mg/dL (9-20); Calcium 9.4 mg/dL (8.4-10.2); Carbon Dioxide 23 mmol/L (22-30); Chloride 105 mmol/L (98-107); Glucose 105 mg/dL (74-99); Non-African American GFR(CKD) 84 (>60 ml/min/1.73 sqM); Sodium 135 mmol/L (137-145); Total Protein 6.3 g/dL (6.3-8.2)
[2024-08-04] MEDS ORDERED: ASPIRIN 325 MG TAB PO SCH (09:00)
[2024-08-04] MEDS: ATORVASTATIN 80 MG TAB PO SCH (10:38)
[2024-08-04] MEDS: ASPIRIN 81 MG PO SCH (10:38)
[2024-08-04 10:47] LABS: LDL Cholesterol,Calculated 58.3 mg/dL (0.0-131.0); VLDL Calculation 16.24 mg/dL (5.00-40.00)
[2024-08-04 11:37] VITALS: TEMP 97.7
[2024-08-04] MEDS: TICAGRELOR 90 MG TAB PO SCH (11:37)
[2024-08-04] MEDS: LOSARTAN 25 MG TAB PO SCH (11:37)
[2024-08-04 11:43] VITALS: BP 108/77; PULSE 77; RESP 16
--- NOTE | 2024-08-04 13:23 | P.PN ---
Subjective HISTORY OF PRESENT ILLNESS: This is a pleasant 54-year-old with past medical history significant for tobacco abuse and possible family history of CAD. He does not follow in the office with a white work cleaner. Patient states that early yesterday morning he started to have chest pain and it lasted approximately 1 hour and then went away. Chest pain was central and felt like a pressure with some associated diaphoresis and some sharp pain going down his left arm. Pain resolved after approximately an hour however reoccurred when he went to work and lasted pretty much all throughout the workday. Later that night he came to the emergency department when he was still having chest discomfort and chest pain resolved when he was in the emergency department. He was found to have non-STEMI with troponin 44 up to the 60s. EKG shows sinus rhythm with ST depressions V1 through V3. Currently denies any chest pain or discomfort whatsoever. Found to have low-grade fever 100.2 and leukocytosis with white blood cells 12. Denies any prior cardiac workup. He does smoke a pack per day, no illicit drugs. Believes his father may have had heart disease however he is unsure. 08/04/2024 Patient underwent cardiac catheterization yesterday revealing proximal LAD 40% stenosis, mid circumflex 99% stenosis, 20 to 30% RCA stenosis, high normal left-sided filling pressures. Patient underwent PCI of the circumflex into the OM1. Patient examined this morning to bedside. Patient currently denies chest pain or pressure. Denies shortness of breath. Vital signs are stable. Echocardiogram performed revealing ejection fraction 30%, mild septal hype rtrophy, severely reduced global LV systolic function, akinetic inferior wall, and hypokinetic inferior apical segments. PHYSICAL EXAM: VITAL SIGNS: Reviewed. GENERAL: Well-developed in no acute distress. NECK: Supple. No JVD or thyromegaly LUNGS: Respirations even and unlabored. Lungs essentially clear to auscultation bilaterally. HEART: Regular rate and rhythm. S1 and S2 heard. EXTREMITIES: Normal range of motion. No clubbing or cyanosis. Peripheral pulses intact. 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 LDL goal less than 70. Continue metoprolol Add losartan 25 mg daily Eventual outpatient addition of Jardiance/Farxiga and Aldactone Smoking cessation recommended. Patient to be referred to [place] quit line upon discharge Patient to follow-up postdischarge in the office with Dr. Mishra Nurse practitioner note has been reviewed by physician. Signing provider agrees with the documented findings, assessment, and plan of care documented by CONDITIONING COACH as a scribe. Objective - Vital Signs Vital signs: Vital Signs Temp 97.7 F 08/04/24 11:30 Pulse 77 08/04/24 11:41 Resp 16 08/04/24 11:41 BP 108/77 08/04/24 11:41 Pulse Ox 97 08/04/24 11:41 FiO2 Intake & Output 08/03/24 08/04/24 08/04/24 18:59 06:59 18:59 Intake Total 220 118 Balance 220 118 Weight 95.5 kg 88 kg Intake: IV 100 Oral 120 118 Other: Voiding Method Toilet Toilet Toilet # Voids 2 1 - Labs CBC & Chem 7: 08/04/24 06:17 08/04/24 06:50 Labs: Abnormal Lab Results - Last 24 Hours (Table) 08/03/24 08/04/24 Range/Units 12:45 06:50 APTT 36.6 H (22.0-30.0) sec Sodium 135 L (137-145) mmol/L Glucose 105 H (74-99) mg/dL AST 131 H (17-59) U/L ALT 52 H (4-49) U/L HDL Cholesterol 35.50 L (40.00-60.00) mg/dL
--- NOTE | 2024-08-04 14:06 | P.DS ---
Providers Date of admission: 08/03/24 00:16 Expected date of discharge: 08/04/24 Attending physician: Yoni Mora Consults: 08/03/24 00:16 Consult Physician Routine Consulting Provider: Harman Lennon Consult Reason/Comments: NSTEMI Do you want consulting provider notified?: Yes 08/03/24 15:13 Consult Physician Routine Consulting Provider: Cardiology Dana Consult Reason/Comments: Post Interventional patient Do you want consulting provider notified?: Already Contacted Primary care physician: Shila Kessler Hospital Course: Discharge diagnoses; # NSTEMI, s/p cardiac catheterization stenting of the circumflex into OM1 #Cardiomyopathy, 30% ischemic likely component of Takotsubo with atypical hypokinesis #Leukocytosis, likely reactive #Elevated lipase #Transaminitis #Tobacco dependence Hospital course; History of present illness; Patient is a 54-year-old with tobacco abuse who presents with chest pain. He states symptoms began yesterday morning he started to have chest pain and it lasted approximately 1 hour and then went away. Chest pain was central and felt like a pressure with some associated diaphoresis and some sharp pain going down his left arm. Pain was 10 out of 10 in severity. Pain resolved after approximately an hour however reoccurred when he went to work and lasted pretty much all throughout the workday. Later that night he came to the emergency department when he was still having chest discomfort and chest pain resolved when he was in the emergency department. Currently denies any chest pain or discomfort whatsoever. Currently patient reports absence of fever, chills, chest pain, palpitations, diaphoresis, dyspnea, cough, abdominal pain, weakness, dizziness, headache, and dysuria. During hospital stay patient underwent cardiac catheterization revealing proximal LAD 40% stenosis, mid circumflex 99% stenosis, 20 to 30% RCA stenosis with high normal left-sided filling pressures. Patient underwent PCI of the circumflex into OM1. Echocardiogram revealed ejection fraction of 30%, mild septal hypertrophy, severely reduced global LV systolic function, akinetic inferior wall, hypokinetic inferior apical segments. Patient discharged in stable condition. He will continue dual antiplatelet therapy with aspirin and Brilinta for 12 months, as well as metoprolol, losartan, high intensity statin, with eventual addition of Jardiance/Farxiga and Aldactone. He is to follow-up with cardiology and his PCP. PHYSICAL EXAMINATION: Vitals reviewed GENERAL: Resting comfortably in bed. CARDIOVASCULAR: S1 and S2 present. No murmurs, rubs, or gallops. PULMONARY: Chest is clear to auscultation, no wheezing, rhonchi, or crackles. ABDOMEN: Soft, nontender, nondistended. No palpable organomegaly. MUSCULOSKELETAL: No apparent joint swelling and deformities. EXTREMITIES: No apparent cyanosis, clubbing. No pedal edema. NEUROLOGICAL: Alert and oriented. Gross neurological examination with no ap parent focal deficits.. Dr. Marquis seen patient with resident, present during exam, and agreed with findings. Dictation was produced using [employer] dictation software. please excuse any grammatical, word or spelling errors. Patient Condition at Discharge: Serious Plan - Discharge Summary Discharge Rx Participant: No New Discharge Prescriptions: New Ticagrelor [Brilinta] 90 mg PO BID #90 tab Aspirin 81 mg PO DAILY #90 tab Losartan [Cozaar] 25 mg PO DAILY #60 tab Atorvastatin [Lipitor] 80 mg PO DAILY #60 tab Metoprolol Tartrate [Lopressor] 25 mg PO BID #60 tab Continue Ibuprofen [Motrin Ib] 600 mg PO BID PRN PRN Reason: BACK PAIN Discharge Medication List Ibuprofen [Motrin Ib] 600 mg PO BID PRN 08/03/24 [History] Aspirin 81 mg PO DAILY #90 tab 08/04/24 [Rx] Atorvastatin [Lipitor] 80 mg PO DAILY #60 tab 08/04/24 [Rx] Losartan [Cozaar] 25 mg PO DAILY #60 tab 08/04/24 [Rx] Metoprolol Tartrate [Lopressor] 25 mg PO BID #60 tab 08/04/24 [Rx] Ticagrelor [Brilinta] 90 mg PO BID #90 tab 08/04/24 [Rx] Follow up Appointment(s)/Referral(s): Michael Mishra, [STAFF PHYSICIAN] - 1 Week (CALL [facility] MAKE [facility]! (Heart doc)) None,Stated [REFERRING] - 1-2 days (DR. MCCAULEY OR NEW PCP CALL AND MAKE [facility]) Patient Instructions/Handouts: Heart Attack (DC), Chest Pain (DC), Heart Catheterization (DC), After Radial Heart Catheterization (GEN) Discharge Disposition: HOME SELF-CARE
== END 2024-08-04 13:20 | disposition home or self-care (01) | DRG 322 ==
LOC: EC 22:19 → 3SCARD 08-03 00:16
PROVIDERS: ADMIT Hospitalist; ATTEND Hospitalist
PROC: B2111ZZ Fluoroscopy of Multiple Coronary Arteries using Low Osmolar Contrast (ICD-10-PCS; 2024-08-03)
PROC: B2151ZZ Fluoroscopy of Left Heart using Low Osmolar Contrast (ICD-10-PCS; 2024-08-03)
PROC: 027034Z Dilation of Coronary Artery, One Artery with Drug-eluting Intraluminal Device, Percutaneous Approach (ICD-10-PCS; principal; 2024-08-03 14:30)
PROC: B240ZZ3 Ultrasonography of Single Coronary Artery, Intravascular (ICD-10-PCS; 2024-08-03 14:30)
PROC: 4A023N7 Measurement of Cardiac Sampling and Pressure, Left Heart, Percutaneous Approach (ICD-10-PCS; 2024-08-03 14:30)
DX: I21.4 Non-ST elevation (NSTEMI) myocardial infarction (principal); I51.81 Takotsubo syndrome; M06.9 Rheumatoid arthritis, unspecified; I25.119 Atherosclerotic heart disease of native coronary artery with unspecified angina pectoris; M51.369 Other intervertebral disc degeneration, lumbar region without mention of lumbar back pain or lower extremity pain; F17.210 Nicotine dependence, cigarettes, uncomplicated; Z71.6 Tobacco abuse counseling; Z79.899 Other long term (current) drug therapy; Z82.49 Family history of ischemic heart disease and other diseases of the circulatory system
CPT/HCPCS: 36415; 71046; 80053; 80061; 83690; 83735; 83880; 84484; 85025; 85379; 85610; 85730; 92978; 93005; 93306; 93458; 96365; 96375; 99291